=== PATIENT | male | born 1950 | race Caucasian/White ===

== ENCOUNTER → 2017-12-10 20:02 | Outpatient (CLI) | payer MEDICARE, OTHER, SELFPAY | PROVIDERS: Family Provider Internal Medicine; PCP Internal Medicine; Visit Provider Family Medicine | DX: G47.33 Obstructive sleep apnea (adult) (pediatric) (principal) | CPT/HCPCS: 95811 ==

== ENCOUNTER → 2018-06-10 12:52 | Outpatient (CLI) | payer MEDICARE, OTHER, SELFPAY ==
--- NOTE | 2018-06-10 13:11 | RAD_ITS ---
STUDY: X-RAY - LEFT KNEE REASON FOR EXAM: Male, 67 years old. Left knee pain, no known injury TECHNIQUE: 4 view(s) of the knee. COMPARISON: None. FINDINGS: Normal visualized distal femur. Normal visualized proximal tibia and fibula. Normal proximal tibiofibular articulation. Normal medial femorotibial compartment. Normal lateral femorotibial compartment. There is mild degenerative arthrosis of the patellofemoral articulation. There is no demonstrated joint effusion. The soft tissue structures are unremarkable. RAD/Knee 4 or More Views IMPRESSION: Minimal patellofemoral osteophytosis Electronically Signed: Danilo Bird DO at 12:02 EST Tel , Service support ,
== END ==
PROVIDERS: Family Provider Internal Medicine; PCP Family Medicine; Visit Provider Family Medicine
DX: M25.562 Pain in left knee (principal)
CPT/HCPCS: 73564

== ENCOUNTER → 2019-04-02 08:55 | Outpatient (CLI) | payer MEDICARE, OTHER, SELFPAY ==
[2019-04-02 12:29] LABS: Absolute Lymphocyte Count 1.19 X10^3/uL (0.83-4.51); Absolute Neutrophil Count 3.5 X10^3/uL (2.0-7.7); Basophil# 0.04 X10^3/uL; Basophil% 0.8 % (0-1); Eosinophil# 0.14 X10^3/uL; Eosinophils% 2.7 % (0-5); Hematocrit 39.1 % (40-54); Hemoglobin 12.5 g/dL (13.0-16.5); Lymphocyte # 1.19 X10^3/ul (4.0); Lymphocyte % 22.5 % (19-41); Mean Platelet Vol. 11.3 fl (6.2-12.0); Monocyte% 7.6 % (0-10); NRBC Flagged by Analyzer 0 % (0-5); Neutrophil % 66.2 % (47-70); Platelet Count 244 K/mm3 (150-450); RBC Distribution Width CV 13.6 % (11.6-14.6); RBC Distribution Width SD 46.6 fl (35.1-43.9); Red Blood Count 4.16 M/mm3 (4.6-6.2); White Blood Count 5.3 K/mm3 (4.4-11.0)
[2019-04-02 12:53] LABS: ALB/GLOB Ratio 1.1 RATIO (0.9-2.4); AST(SGOT) 24 U/L (15-37); Alanine Aminotransfer ALT/SGPT 26 U/L (16-61); Albumin, Serum 3.6 g/dL (3.2-5.0); Alkaline Phosphatase 80 U/L (45-117); Anion Gap 4 (5-15); BUN 20 mg/dL (7-18); BUN/Creat Ratio 19.6 RATIO (10-20); Calcium,Total 8.8 mg/dL (8.5-10.1); Chloride 109 mmol/L (98-107); Cholesterol 115 mg/dL (200); Creatinine, Serum 1.02 mg/dL (0.70-1.30); EST Glomerular Filtration Rate 77 mL/min (>60); Est Glom Filt Rate - Afr Amer 93 mL/min (>60); Globulin 3.3 g/dL (2.2-4.2); Glucose 83 mg/dL (74-106); High Density Lipoprotein 43 mg/dL; PSA,Total - Annual Screen 3.86 ng/mL (0.00-4.00); Protein, Total 6.9 g/dL (6.4-8.2); Sodium Level 141 mmol/L (136-145); Triglycerides 86 mg/dL; Very Low Density Lipoprotein 17 mg/dL (5-40)
== END ==
PROVIDERS: Family Provider Family Medicine; PCP Family Medicine; Visit Provider Family Medicine
DX: I25.10 Atherosclerotic heart disease of native coronary artery without angina pectoris (principal); E78.5 Hyperlipidemia, unspecified; Z12.5 Encounter for screening for malignant neoplasm of prostate; Z51.81 Encounter for therapeutic drug level monitoring
CPT/HCPCS: 36415; 80053; 80061; 84153; 85025; G0103

== ENCOUNTER → 2019-08-10 14:21 | Outpatient (CLI) | payer MEDICARE, OTHER, SELFPAY | PROVIDERS: PCP Family Medicine; Referring Provider Family Medicine; Visit Provider Family Medicine | DX: Z28.3 Underimmunization status (principal) | CPT/HCPCS: 36415; 86787 ==

== ENCOUNTER 2022-06-23 21:55 | Inpatient (IN) | payer MEDICARE, OTHER, SELFPAY ==
[2022-06-23 21:56] VITALS: BP 118/69; PULSE 63; TEMP 36.3; O2SAT 97; BMI 24.3
--- NOTE | 2022-06-23 22:10 | EKG12_ITS ---
Test Reason : CP Blood Pressure : / mmHG Vent. Rate : 063 BPM Atrial Rate : 063 BPM P-R Int : 172 ms QRS Dur : 088 ms QT Int : 410 ms P-R-T Axes : 039 059 015 degrees QTc Int : 419 ms Normal sinus rhythm Normal ECG Confirmed by TERE PRADO, MAX ([id number]), assistant production editor MEMO BAILEY ([id number]) on 06/24/2022 10:57:57 AM Referred By: Confirmed By:MAX CARRANZA MD
--- NOTE | 2022-06-23 22:11 | ED.VIS.CHEST ---
HPI History of Present Illness Chief Complaint: Chest Pain Informant: patient and EMS Narrative Narrative: Presents by EMS for onset of sharp chest pains with dyspnea while shoveling snow. He was doing heavy snow for 2 hours and symptoms started. He states he is short of breath as he is attributed to shoveling snow. He was not diaphoretic there is no radicular symptoms. Hypertension and hyperlipidemia remote tobacco. He states he had an NSTEMI 4 years ago with stent to the left circumflex placed [facility]. He is followed by cardiology Dr. Merino. He took 2 nitros with no relief EMS gave additional 4 aspirin. However his pain subsiding down to a 3. Denies cough. He reports with his heart catheter or other lesions that were 50 to 60% blocked with no intervention. He has not had a cath since. No stress test since. States at that time with his NSTEMI he had pain that was more significant combination of pressure and sharpness. He states he was diaphoretic then. CVD Risk Factors: Positive for Hypertension and Hypercholesterolemia PFSH REPLACED BY [facility] Medical History (Updated 06/24/22 @ 03:[address] Oren Garrett DO) Myocardial infarct Home Medications Nitroglycerin 0.4 mg sublingual PRN Cardiac/Chest Pain 12/26/16 [History Last Taken Unknown] aspirin 81 mg chewable tablet 81 mg PO DAILY@0800 12/26/16 [History Last Taken Unknown] atorvastatin 80 mg tablet 80 mg QHS 12/26/16 [History Last Taken Unknown] metoprolol tartrate 25 mg tablet 12.5 mg PO BID 12/26/16 [History Last Taken Unknown] Allergy/AdvReac Type Severity Reaction Status Date / Time No Known Allergies Allergy Verified 06/23/22 22:01 Family History Other Diabetes Heart disease Surgical History History of coronary artery stent placement Hx of skin graft Social History (Updated 06/24/22 @ 00:40 by Basia Gunn) housing: house Smoking Status: Former smoker ROS ROS ED Constitutional Constitutional ED: Denies chills, fever(s) or sweats Eyes Eyes: Denies change in vision ENT ENT ED: Denies dysphagia or sore throat Cardiovascular Cardiovascular: Reports chest pain; Denies leg edema, palpitations or racing heartbeat Respiratory/Chest Respiratory/Chest: Reports dyspnea; Denies cough or dyspnea on exertion Gastrointestinal Gastrointestinal: Denies abdominal pain, diarrhea, nausea or vomiting Genitourinary Genitourinary ED: Denies dysuria, hematuria or urinary frequency Musculoskeletal Musculoskeletal: Denies back pain, extremity pain or neck pain Integumentary Denies rash or wounds Neurologic Neurologic: Denies headache(s), paresthesias or weakness EXAM Physical Exam Const Vital Signs: 06/23/22 21:56 06/23/22 22:10 Temperature 97.4 F L Temperature Source Temporal Pulse Rate 63 Blood Pressure 118/69 Blood Pressure Mean 85 Pulse Ox 97 Oxygen Delivery Method Room Air Room Air Positive well nourished and well developed General Appearance ED: well developed and NAD HEENT Reports moist mucous membranes normocephalic and atraumatic Eyes PERRL, EOMs intact bilaterally and conjunctivae normal General Eye ED: Yes normal appearance of both eyes Neck no lymphadenopathy and supple General: Negative for tenderness Chest Wall Chest: Negative for tenderness Resp normal respiratory effort and normal air movement Effort and Inspection: symmetric chest movement; Negative for respiratory distress Cardio regular rate, regular rhythm and no murmurs Peripheral Pulses: pulses 2+ throughout GI normal to inspection, nondistended, normoactive bowel sounds and non-tender Palpation: Negative for guarding or rebound tenderness present Back/Spine no CVA tenderness and no thoracic nor lumbar tenderness Extremity normal to inspection General Extremety ED: Negative for edema or tenderness General Extremity: Negative for edema Neuro oriented x3 and no sensory deficits noted Sensorium / Orientation: awake and alert Skin no rashes or lesions noted and no wounds Heart Score History: Moderately Suspicious ECG: Normal Age: >/= 65 years Risk Factors: >/= 3 Risk Factors or History of CAD Troponin: </= Normal Limit Score: 5 MDM MDM MDM Narrative Medical decision making narrative: Patient presents with exertional chest pain severe sharp in nature with dyspnea. History of coronary disease. EKG isolated T wave version leads III nonspecific this time. Differential is ACS with atypical chest pain versus musculoskeletal. No PE risk factors. Cardiac work-up initiated. 5: 2 view chest x-ray read by myself and read by me shows no acute process. Troponin negative. Reevaluation and pain is more mild however still there he declines any additional medications with his cardiac risk factors and known coronary disease up to 60% blocked 4 years ago I spoke with covering manager drive Dr. Jain, with no EKG changes he recommends trending troponin and if negative for stress test in the hospital. I spoke with hospitalist Dr Aguayo for admission to PCU.. Lab Data Attestation: I reviewed the patient's lab results. Labs: Laboratory Results - last 24 hr 06/23/22 06/23/22 06/23/22 22:00 22:00 22:00 WBC 12.2 H RBC 4.01 L Hgb 12.4 L Hct 37.3 L MCV 93.0 MCH 30.9 MCHC 33.2 RDW Std Deviation 47.4 H RDW Coeff of David 13.9 Plt Count 231 MPV 11.2 Immature Gran % (Auto) 0.300 Neut % (Auto) 85.9 H Lymph % (Auto) 9.0 L [place] % (Auto) 4.0 Eos % (Auto) 0.4 Baso % (Auto) 0.4 Absolute Neuts (auto) 10.5 H Absolute Lymphs (auto) 1.09 Nucleated RBC % 0 PT 13.8 INR 1.1 APTT 26.6 Sodium 141 Potassium 4.2 Chloride 109 H Carbon Dioxide 26.0 Anion Gap 6 BUN 29 H Creatinine 0.97 Estim Creat Clear Calc 75.56 Est GFR (MDRD) Af Amer 98 Est GFR (MDRD) Non-Af 81 BUN/Creatinine Ratio 29.9 H Glucose 97 Calcium 8.8 Troponin I High Sens 6 Radiography Diagnostic Testing: Clinical Impression(s) from Imaging Studies Chest X-Ray 06/23/22 22:15 IMPRESSION: No radiographic evidence of acute cardiopulmonary disease. Electronically Signed: Tom Motta MD at 22:27 EST , EKG Initial EKG: Attestation: I personally reviewed and interpreted this EKG as follows: Comments: Sinus rate of 63, no ST changes isolated T wave version leads III, nonspecific. Discharge Plan Dx/Rx/DC Orders Clinical Impression: Chest pain, HTN (hypertension), History of CAD (coronary artery disease) Disposition Disposition: Acute Care Hospital [facility] Discharge Date/Time: 06/24/22 00:42
--- NOTE | 2022-06-23 22:15 | RAD_ITS ---
EXAM: XR CHEST, 2 VIEWS CLINICAL INDICATION: chest pain TECHNIQUE: Frontal and lateral views of the chest. This report was created using [employer] report generation technology. COMPARISON: None. FINDINGS: LUNGS AND PLEURAL SPACES: Unremarkable. No consolidation or edema. No pneumothorax. No effusion. HEART: Unremarkable. Cardiac silhouette not enlarged. MEDIASTINUM: Central airways and mediastinal contour are unremarkable. BONES/JOINTS: Unremarkable. SOFT TISSUES: Unremarkable. RAD/Chest PA and Lateral IMPRESSION: No radiographic evidence of acute cardiopulmonary disease. Electronically Signed: Tom Motta MD at 22:27 [facility] ,
[2022-06-23 22:34] LABS: Absolute Lymphocyte Count 1.09 X10^3/uL (0.83-4.51); Absolute Neutrophil Count 10.5 X10^3/uL (2.0-7.7); Basophil# 0.05 X10^3/uL; Basophil% 0.4 % (0-1); Eosinophil# 0.05 X10^3/uL; Eosinophils% 0.4 % (0-5); Hematocrit 37.3 % (40-54); Hemoglobin 12.4 g/dL (13.0-16.5); Lymphocyte # 1.09 X10^3/ul (0.83-4.51); Mean Corp Hgb Conc 33.2 g/dL (32-36); Mean Corpuscular Hgb 30.9 pg (27.0-32.0); Mean Platelet Vol. 11.2 fl (6.2-12.0); Monocyte# 0.49 X10^3/uL; NRBC Flagged by Analyzer 0 % (0-5); Neutrophil # 10.45 X10^3/uL (2.7-7.7); Neutrophil % 85.9 % (47-70); Platelet Count 231 K/mm3 (150-450); RBC Distribution Width CV 13.9 % (11.6-14.6); RBC Distribution Width SD 47.4 fl (35.1-43.9); Red Blood Count 4.01 M/mm3 (4.6-6.2); White Blood Count 12.2 K/mm3 (4.4-11.0)
[2022-06-23 22:43] LABS: International Normalized Ratio 1.1; Prothrombin Time (Protime)PT. 13.8 SECONDS (11.7-14.9)
[2022-06-23 22:44] LABS: Partial Thromboplast Time 26.6 Seconds (24.1-36.2)
[2022-06-23 23:08] LABS: Anion Gap 6 (5-15); BUN 29 mg/dL (7-18); BUN/Creat Ratio 29.9 RATIO (10-20); Calcium,Total 8.8 mg/dL (8.5-10.1); Chloride 109 mmol/L (98-107); Creatinine, Serum 0.97 mg/dL (0.70-1.30); EST Glomerular Filtration Rate 81 mL/min (>60); Est Glom Filt Rate - Afr Amer 98 mL/min (>60); Estimated Creatinine Clearance 75.56 ml/min; Glucose 97 mg/dL (74-106); Potassium 4.2 mmol/L (3.5-5.1); Sodium Level 141 mmol/L (136-145); Troponin-I HS (w/2H Reflex) 6 pg/mL (3.0-78.0)
--- NOTE | 2022-06-23 23:54 | HP.PCM.HOS_ITS ---
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 His chest pain was at his left chest and it went through to his left scapula. His chest pain came on suddenly after shoveling snow. He took 2 nitroglycerin that did not help his pain. Paramedics gave him 4 baby aspirin that eased his pain somewhat but his pain returned. He denies any nausea or vomiting. He had diaphoresis and shortness of breath that he thinks was associated with shoveling. Aside from the shoveling patient denies any aggravating factors to the chest pain. At the time of hospital evaluation patient's pain was about a 1 on a scale of 1- 10. Patient has had some ongoing fatigue with exertion. In regard to his NSTEMI he report that 4 years ago he had chest pain and went to [facility]. At that time his troponin was not elevated. However patient was transferred to [facility] where his troponin esequiel and he ended up being cath. A stent was placed in his circumflex. However there were a 'couple' of vessels which was stenosed to 50 to 60%. [facility] Medical History Myocardial infarct Home Medications Nitroglycerin 0.4 mg sublingual PRN Cardiac/Chest Pain 12/26/16 [History Last Taken Unknown] aspirin 81 mg chewable tablet 81 mg PO DAILY@0800 12/26/16 [History Last Taken Unknown] atorvastatin 80 mg tablet 80 mg QHS 12/26/16 [History Last Taken Unknown] metoprolol tartrate 25 mg tablet 12.5 mg PO BID 12/26/16 [History Last Taken Unknown] Allergy/AdvReac Type Severity Reaction Status Date / Time No Known Allergies Allergy Verified 06/23/22 22:01 Family History Other Diabetes Heart disease Surgical History (Updated 06/24/22 @ 00:[address] Junior Aguayo MD) History of coronary artery stent placement Hx of skin graft Social History Smoking Status: Former smoker ROS ROS Narrative Pertinent positives and pertinent negatives as noted in HPI. All other systems were reviewed and are negative Vital Signs Vital Signs Vital Signs: 06/23/22 21:56 06/23/22 22:10 Temperature 97.4 F L Temperature Source Temporal Pulse Rate 63 Blood Pressure 118/69 Blood Pressure Mean 85 Pulse Ox 97 Oxygen Delivery Method Room Air Room Air Weight Weight: 81.4 kg Body Mass Index (BMI) 24.3 Physical Exam Narrative Physical exam: General: Well-nourished, well-developed. Head: Normocephalic, atraumatic, no tenderness Eyes: Vision is grossly intact. EOMI ENT, no trauma, moist mucous membranes, no rhinorrhea Neck: Nontender, No thyromegaly. CVS: Regular rate and rhythm. S1-S2 present. No murmur, gallop or rub. Respiratory : clear to auscultation bilaterally, chest wall nontender, no wheezing Abdomen: Soft, nontender, nondistended, normal bowel sounds, no masses : Deferred Back: Nontender, no CVA tenderness, no midline spinal tenderness, deformities, step-offs Extremities: Nontender full range of motion, no trauma Skin: Normal color, no trauma, abrasions Neuro: Alert, oriented, cranial nerves II through XII grossly intact. Psychiatry: Normal mood. Normal affect. Not depressed. Not anxious. Results Lab / Micro Data Result Diagrams: 06/23/22 22:00 06/23/22 22:00 Labs: Laboratory Results - last 24 hr 06/23/22 22:00: WBC 12.2 H, RBC 4.01 L, Hgb 12.4 L, Hct 37.3 L, MCV 93.0, MCH 30.9, MCHC 33.2, RDW Std Deviation 47.4 H, RDW Coeff of David 13.9, Plt Count 231, MPV 11.2, Immature Gran % (Auto) 0.300, Neut % (Auto) 85.9 H, Lymph % (Auto) 9.0 L, [place] % (Auto) 4.0, Eos % (Auto) 0.4, Baso % (Auto) 0.4, Absolute Neuts (auto) 10.5 H, Absolute Lymphs (auto) 1.09, Nucleated RBC % 0 06/23/22 22:00: PT 13.8, INR 1.1, APTT 26.6 06/23/22 22:00: Sodium 141, Potassium 4.2, Chloride 109 H, Carbon Dioxide 26.0, Anion Gap 6, BUN 29 H, Creatinine 0.97, Estim Creat Clear Calc 75.56, Est GFR (MDRD) Af Amer 98, Est GFR (MDRD) Non-Af 81, BUN/Creatinine Ratio 29.9 H, Glucose 97, Calcium 8.8, Troponin I High Sens 6 Radiology Impression Chest X-Ray 06/23/22 22:15 IMPRESSION: No radiographic evidence of acute cardiopulmonary disease. Electronically Signed: Tom Motta MD at 22:27 EST , Assessment & Plan Assessment/Plan (1) Chest pain: (2) HTN (hypertension): PLAN: Plan Chest pain Place on a monitored bed at progressive care unit Radiologist impression of chest x-ray: No radiographic evidence of acute ca rdiopulmonary disease. Actual CXR image was independently visualized. No acute cardiopulmonary process was noted. Actual EKG tracing was independently visualized. EKG tracing showed T wave inversions in lead III. No previous EKG to compare with ASA 81 mg p.o. daily and high intensity statin of atorvastatin 80 mg nightly continued. Morphine as needed for pain ordered We will check lipid panel. Initial high sensitive troponin was 6. Emergency department doctor discussed with on-call cardiology because of patient risk. Per recommendation from on- call program support specialist relayed to ED will trend troponin. If troponin is negative we will get a stress test. Treadmill stress test ordered. If troponin is significant elevated will consult cardiology. Leukocytosis CBC showed white count of 12,200. There is no bandemia. Likely reactive. Trend. Chronic anemia Stable Hypertension Stable Home metoprolol continued. Hold for a.m. stress test. Trend blood pressures DVT prophylaxis; SCD ordered. Charges/Coding Visit Charges Inpatient E&M: 44651 Init Hosp L2
[2022-06-24] VITALS (16 sets, daily range): BP systolic 106–134; BP diastolic 66–84; PULSE 57–69; RESP 14–18; TEMP 36.3–36.7; O2SAT 94–100; BMI 23.9
[2022-06-24 00:19] LABS: Reflex Troponin-HS? (from REC) Y
--- NOTE | 2022-06-24 00:49 | EKG12_ITS ---
Test Reason : CP ADMIT Blood Pressure : / mmHG Vent. Rate : 063 BPM Atrial Rate : 063 BPM P-R Int : 186 ms QRS Dur : 090 ms QT Int : 426 ms P-R-T Axes : 070 060 026 degrees QTc Int : 435 ms Normal sinus rhythm Normal ECG When compared with ECG of 23-JUN-2022 21:55, MANUAL COMPARISON REQUIRED, DATA IS UNCONFIRMED Confirmed by TERE PRADO, MAX ([id number]), editor farm journal MEMO BAILEY ([id number]) on 06/25/2022 11:31:56 AM Referred By: DR STEWART Confirmed By:MAX CARRANZA MD
[2022-06-24 02:14] LABS: Troponin-I HS 46 pg/mL (3.0-78.0)
[2022-06-24 04:08] LABS: Absolute Lymphocyte Count 1.49 X10^3/uL (0.83-4.51); Absolute Neutrophil Count 7.3 X10^3/uL (2.0-7.7); Basophil# 0.04 X10^3/uL; Basophil% 0.4 % (0-1); Eosinophil# 0.02 X10^3/uL; Eosinophils% 0.2 % (0-5); Hematocrit 36.5 % (40-54); Lymphocyte # 1.49 X10^3/ul (0.83-4.51); Mean Corp Hgb Conc 32.9 g/dL (32-36); Mean Corpuscular Hgb 30.5 pg (27.0-32.0); Mean Corpuscular Volume 92.6 fL (80-94); Mean Platelet Vol. 11.1 fl (6.2-12.0); Monocyte# 0.42 X10^3/uL; Monocyte% 4.5 % (0-10); NRBC Flagged by Analyzer 0 % (0-5); Neutrophil # 7.31 X10^3/uL (2.7-7.7); Neutrophil % 78.6 % (47-70); Platelet Count 221 K/mm3 (150-450); RBC Distribution Width CV 13.9 % (11.6-14.6); RBC Distribution Width SD 47.4 fl (35.1-43.9); Red Blood Count 3.94 M/mm3 (4.6-6.2); White Blood Count 9.3 K/mm3 (4.4-11.0)
[2022-06-24] MEDS: Aspirin 81 MG TAB.CHEW PO (05:44)
--- NOTE | 2022-06-24 05:55 | ECHOD_ITS ---
Reason For Study: Fatigue with exertion Procedure This was a 2D Doppler, Color Flow transthoracic echocardiogram. Exam performed portable in patient room. Left Ventricle Normal LV size. Left ventricular systolic function is normal. The estimated ejection fraction is 60 %. Normal diastology for age. No regional wall motion abnormalities noted. Right Ventricle Normal RV size. Normal systolic function. Atria Normal left atrium. Normal right atrium. Mitral Valve Normal mitral valve. Tricuspid Valve Normal tricuspid valve. Mild tricuspid valve insufficiency. Pulmonary artery systolic pressure is 30 mmHg. Aortic Valve Normal aortic valve. Trisinus/trileaflet aortic valve. Pulmonic Valve Normal pulmonic valve. Great Vessels Normal aortic root. The pulmonary artery is normal size. Normal inferior vena cava. Pericardium/Pleural No pericardial effusion. MMode/2D Measurements & Calculations LVIDd: 5.3 cm IVSd: 1.1 cm Ao root diam: 3.7 cm LVIDs: 3.0 cm LVPWd: 0.78 cm RVDd: 3.5 cm FS: 42.2 % LAV(MOD-bp): 39.8 ml LVAd ap4: 29.1 cm2 LVAd ap2: 26.1 cm2 LAV(MOD-bp) Indexed: 19.7 ml/m2 LVLd ap4: 7.7 cm LVLd ap2: 7.5 cm LAV(MOD-sp2): 54.5 ml EDV(MOD-sp4): 93.0 ml EDV(MOD-sp2): 79.1 ml LAV(MOD-sp4): 27.7 ml EDV(sp4-el): 93.1 ml EDV(sp2-el): 77.3 ml LVAs ap4: 15.4 cm2 LVAs ap2: 13.2 cm2 LVLs ap4: 6.3 cm LVLs ap2: 6.2 cm ESV(MOD-sp4): 33.2 ml ESV(MOD-sp2): 26.2 ml ESV(sp4-el): 32.2 ml ESV(sp2-el): 24.1 ml EF(MOD-sp4): 64.3 % EF(MOD-sp2): 66.8 % EF(sp4-el): 65.4 % SV(MOD-sp4): 59.8 ml SV(MOD-sp2): 52.8 ml SV(sp4-el): 60.9 ml LA dimension(2D): 3.6 cm LA A4 area: 13.6 cm2 RA A4 area: 18.1 cm2 Time Measurements MV dec time: 0.20 sec Doppler Measurements & Calculations MV E max mikael: 77.2 cm/sec Lat Peak E' Mikael: 12.3 cm/sec Med Peak E' Mikael: 8.2 cm/sec MV A max mikael: 56.7 cm/sec E/E' lat: 6.3 E/E' med: 9.5 MV E/A: 1.4 MV dec slope: 382.4 cm/sec2 Ao V2 max: 136.4 cm/sec LV V1 max: 106.9 cm/sec Ao max P.5 mmHg LV V1 max P.6 mmHg Ao V2 mean: 88.0 cm/sec Ao mean P.6 mmHg Ao V2 VTI: 32.3 cm PA V2 max: 100.8 cm/sec TR max mikael: 258.2 cm/sec TR max P.7 mmHg ECHO/Echo Complete Interpretation Summary Normal LV size. Left ventricular systolic function is normal. The estimated ejection fraction is 60 %. Pulmonary artery systolic pressure is 30 mmHg. Ordering Physician: Junior Aguayo Referring Physician: Gallito Covarrubias Performed By: Natalie Echevarria, GISELA, RVT
[2022-06-24 07:57] LABS: Cholesterol 109 mg/dL (200); High Density Lipoprotein 49 mg/dL; Triglycerides 34 mg/dL; Very Low Density Lipoprotein 7 mg/dL (5-40)
[2022-06-24 08:17] LABS: Troponin-I HS 301 pg/mL (3.0-78.0)
--- NOTE | 2022-06-24 08:59 | PCM.CONS.C ---
Assessment & Plan Assessment/Plan (1) NSTEMI (non-ST elevated myocardial infarction): PLAN: He presents with a non-ST elevation myocardial infarction. My recommendation will be to proceed with a left heart catheterization and depending on the findings further recommendations made. Cardiac catheterization today demonstrated the following: Normal left main coronary artery. Left anterior descending artery with mild disease. Left circumflex artery previously stented with patent stents. Dominant right coronary artery with posterior lateral vessel with proximal 70 to 80% stenosis. Based on the above angiographic findings would consider PCI to this vessel. (2) HTN (hypertension): PLAN: Patient will continue with aggressive risk factor modification. HPI Consult Data Date of Consult: 06/24/22 HPI Narrative HPI Narrative: SMITA GAVIRIA, is a 71 M who presents to the emergency room with chest discomfort who says that it was sharp started an hour before presentation and radiated to his left scapula. He when shoveling snow and then this happened. He took nitroglycerin which did not help and then he called the paramedics. They gave him 4 baby aspirin. In the emergency room he had minimal chest discomfort and was also noted to have an EKG which did not demonstrate any acute changes. His history is significant for non-ST elevation myocardial infarction 4 years ago when he presented and went to [facility] and was transferred to [facility] where he underwent stent placement in the circumflex vessel. The other vessels were noted to be 50 to 60% stenosis. Medical therapy was recommended. At this particular time he is doing well he was scheduled to have a stress test but with his abnormal cardiac enzymes cardiology was called for further evaluation and management. [facility] Medical History Myocardial infarct Home Medications Nitroglycerin 0.4 mg sublingual PRN Cardiac/Chest Pain 12/26/16 [History Last Taken Unknown] aspirin 81 mg chewable tablet 81 mg PO DAILY@0800 12/26/16 [History Last Taken Unknown] atorvastatin 80 mg tablet 80 mg QHS 12/26/16 [History Last Taken Unknown] metoprolol tartrate 25 mg tablet 12.5 mg PO BID 12/26/16 [History Last Taken Unknown] Allergy/AdvReac Type Severity Reaction Status Date / Time No Known Allergies Allergy Verified 06/23/22 22:01 Family History Other Diabetes Heart disease Surgical History History of coronary artery stent placement Hx of skin graft Social History housing: house Smoking Status: Former smoker ROS Constitutional Constitutional: Denies fever(s) or weight loss Eyes Eyes: Reports systems reviewed and no addt'l complaints, except as documented ENT HEENT: Reports systems reviewed and no addt'l complaints, except as documented Cardiovascular Cardiovascular: Reports chest pain with activity; Denies dyspnea at rest, dyspnea on exertion, edema, palpitations or paroxysmal nocturnal dyspnea Respiratory/Chest Respiratory/Chest: Denies dyspnea on exertion, productive cough, shortness of breath at rest or shortness of breath with exertion Gastrointestinal Gastrointestinal: Denies change in bowel habits, nausea, vomiting or weight changes Genitourinary Genitourinary: Denies difficulty urinating Musculoskeletal Musculoskeletal: Denies joint stiffness or muscle weakness Integumentary Integumentary: Denies lesions Neurologic Neurologic: Denies dizziness or syncope Psychiatric Psychiatric: Denies anxiety Endocrine Endocrinology: Denies excessive sweating or fatigue Hematologic/Lymphatic Hematologic/Lymphatic: Denies anemia Allergic/Immunologic Allergic/Immunologic: Denies seasonal rhinorrhea Physical Exam Const alert, oriented x3 and no apparent distress General Appearance: cooperative HEENT hearing grossly normal bilaterally Head and Scalp: atraumatic Eyes EOMs intact bilaterally Neck General: normal visual inspection Chest inspection of chest normal and palpation of chest normal Resp normal respiratory effort Auscultation: clear to auscultation bilaterally Cardio regular rate, regular rhythm, S1 normal heart sound and S2 normal heart sound Jugular Venous Distention: JVD GI normal to inspection, nondistended, normoactive bowel sounds Extremity normal capillary refill and no pedal edema Peripheral Pulses: Yes pulses 2+ throughout and femoral pulses present Skin no rashes or lesions noted Neuro oriented x3 and CN's II-XII intact bilaterally Psych Appearance: grossly normal and appropriate Risk Stratification Risk Stratification Applicable: Yes Age >/= 65: Yes >/= 3 CAD Risk Factors (HTN, HLD, DM, family hx of CAD, or current smoker): Yes Aspirin Use in the Past 7 Days: No Severe Angina (>/= episodes in 24 hours): No EKG ST Changes >/= 0.5mm: No Positive Cardiac Marker: Yes PRABHJOT Risk Stratification Score: 3 PRABHJOT % Risk: 13% Risk Objective Data Vital Signs: Vital Signs Temp Pulse Resp BP Pulse Ox O2 Del Method 97.4 F L 60 16 106/66 96 Room Air 06/24/22 05:41 06/24/22 05:41 06/24/22 05:41 06/24/22 05:41 06/24/22 05:41 06/24/22 07:40 Oxygen Delivery Method Room Air Weight: 176 lb 9.444 oz Body Mass Index (BMI) 23.9 Lab / Micro Data Result Diagrams: 06/24/22 03:51 06/23/22 22:00 Labs: Laboratory Results - last 24 hr 06/23/22 22:00: WBC 12.2 H, RBC 4.01 L, Hgb 12.4 L, Hct 37.3 L, MCV 93.0, MCH 30.9, MCHC 33.2, RDW Std Deviation 47.4 H, RDW Coeff of David 13.9, Plt Count 231, MPV 11.2, Immature Gran % (Auto) 0.300, Neut % (Auto) 85.9 H, Lymph % (Auto) 9.0 L, Dixie % (Auto) 4.0, Eos % (Auto) 0.4, Baso % (Auto) 0.4, Absolute Neuts (auto) 10.5 H, Absolute Lymphs (auto) 1.09, Nucleated RBC % 0 06/23/22 22:00: PT 13.8, INR 1.1, APTT 26.6 06/23/22 22:00: Sodium 141, Potassium 4.2, Chloride 109 H, Carbon Dioxide 26.0, Anion Gap 6, BUN 29 H, Creatinine 0.97, Estim Creat Clear Calc 75.56, Est GFR (MDRD) Af Amer 98, Est GFR (MDRD) Non-Af 81, BUN/Creatinine Ratio 29.9 H, Glucose 97, Calcium 8.8, Troponin I High Sens 6 06/24/22 00:30: Troponin I High Sens 46 06/24/22 03:51: Triglycerides 34, Cholesterol 109, LDL Cholesterol 53, VLDL Cholesterol 7, HDL Cholesterol 49 06/24/22 03:51: WBC 9.3, RBC 3.94 L, Hgb 12.0 L, Hct 36.5 L, MCV 92.6, MCH 30.5, MCHC 32.9, RDW Std Deviation 47.4 H, RDW Coeff of David 13.9, Plt Count 221, MPV 11.1, Immature Gran % (Auto) 0.300, Neut % (Auto) 78.6 H, Lymph % (Auto) 16.0 L, Dixie % (Auto) 4.5, Eos % (Auto) 0.2, Baso % (Auto) 0.4, Absolute Neuts (auto) 7.3, Absolute Lymphs (auto) 1.49, Nucleated RBC % 0 06/24/22 03:51: Troponin I High Sens 301 H* Cardiology Labs/Tests 06/23/22 22:00: WBC 12.2 H, RBC 4.01 L, Hgb 12.4 L, Hct 37.3 L, MCV 93.0, MCH 30.9, MCHC 33.2, Plt Count 231, MPV 11.2, Immature Gran % (Auto) 0.300, Neut % (Auto) 85.9 H, Lymph % (Auto) 9.0 L, Dixie % (Auto) 4.0, Eos % (Auto) 0.4, Baso % (Auto) 0.4, Absolute Neuts (auto) 10.5 H, Nucleated RBC % 0 06/23/22 22:00: PT 13.8, INR 1.1, APTT 26.6 06/23/22 22:00: Sodium 141, Potassium 4.2, Chloride 109 H, Carbon Dioxide 26.0, Anion Gap 6, BUN 29 H, Creatinine 0.97, Est GFR (MDRD) Af Amer 98, Est GFR (MDRD) Non-Af 81, BUN/Creatinine Ratio 29.9 H, Glucose 97, Calcium 8.8 06/24/22 03:51: Triglycerides 34, Cholesterol 109, LDL Cholesterol 53, VLDL Cholesterol 7, HDL Cholesterol 49 06/24/22 03:51: WBC 9.3, RBC 3.94 L, Hgb 12.0 L, Hct 36.5 L, MCV 92.6, MCH 30.5, MCHC 32.9, Plt Count 221, MPV 11.1, Immature Gran % (Auto) 0.300, Neut % (Auto) 78.6 H, Lymph % (Auto) 16.0 L, Dixie % (Auto) 4.5, Eos % (Auto) 0.2, Baso % (Auto) 0.4, Absolute Neuts (auto) 7.3, Nucleated RBC % 0 Rhythm: EKG: ECHO: Stress Test: Cardiac Cath: PCI: CT Surgery: Holter monitor: EPS: PPM: CXR: Chest CT Scan: Radiography Diagnostic Testing: Radiology Impression Chest X-Ray 06/23/22 22:15 IMPRESSION: No radiographic evidence of acute cardiopulmonary disease. Electronically Signed: Tom Motta MD at 22:27 EST ,
[2022-06-24] MEDS: 0.9% Normal Saline 1,000 ML 15 ML IV (09:07)
[2022-06-24] MEDS: Metoprolol Tartrate 25 MG Tablet 12.5 MG PO ×2 (09:08→21:43)
--- NOTE | 2022-06-24 10:11 | CL.D_ITS ---
Patient Name: SMITA GAVIRIA Study Date: 06/24/2022 Performing: Titus Jain MD Ht: 72 inches 182.88 cm : 1950 Wt: 176.59 lbs 80.1 kg Age: 71 Gender: male BSA: 2.02 PROCEDURE(S) PERFORMED DC01-(08502)LHC/COR/LV IC12-(69969/C9600)BERNARDO W/WO PTCA, SINGLE CORONARY ARTERY CLINICAL PROFILE AND INDICATIONS Indications: Suspected CAD Heart Failure: None Stress/Imaging Stress/Image Study Performed: No CAD Presentations: Non-STEMI. Symptom onset Date/Time: 06/23/22 Time Not Available CONCLUSIONS Moderately severe disease noted of the proximal posterolateral vessel on the right coronary artery with previously placed stent in the circumflex artery noted to be patent and preserved ejection fraction. RECOMMENDATIONS Referred for immediate PCI DESCRIPTION OF PROCEDURE The patient arrived to the procedure lab. The risks and benefits of the procedure as well as a full description of our services here and current unavailability of surgical backup were fully explained to the patient and/or their significant other prior to the catheterization. The Timeout was completed, verifying the correct patient and procedure. The patient's procedural site was prepped and draped in the usual fashion. Local anesthetic was given subcutaneously to right radial region with Lidocaine 2%. Using a modified Seldinger technique, arterial access was obtained via the right radial artery, a 6Fr sheath was inserted. Left Coronary Artery selective angiography was performed in multiple views using a 5 Fr. 4.0 Calvin catheter. Right Coronary Artery selective angiography was then performed in multiple views using a 5 Fr. 4.0 Calvin catheter. Left Ventriculography was performed in WELSH projection using a 5 Fr. Pigtail catheter. LV to AO pullback pressures were then recorded. CORONARY ANGIOGRAPHY DOMINANCE: Right Dominant LEFT HEART ASSESSMENT Normal Left Ventricular systolic function LEFT MAIN: Angiographically normal LEFT ANTERIOR DESCENDING ARTERY: Mild luminal irregularities less than 30% CIRCUMFLEX ARTERY: Previously placed stent is patent RIGHT CORONARY ARTERY: Mild luminal irregularities RT PLV: 70 proximal % Stenosis COMPLICATIONS PROCEDURE MEDICATIONS Fentanyl 50 mcg IV Versed 1 mg IV Oxygen: 2 L/min via nasal cannula Brilinta 180 mg PO @ 06/24/2022 09:59:28 Heparin given IA 06/24/2022 09:48:37 Verapamil 2.5mg, Ntg 100mcgs, 3000 units of Heparin given IA 06/24/2022 09:48:37 SUMMARY OF HEMODYNAMIC DATA Time AIR REST AO 109/69 (89) SA 09:49:31 LV 108/9, 20 09:56:39 LV 96/11, 21 09:56:47 LV 96/11, 14 09:57:44 LVp 95/9, 16 09:57:49 AOp 128/68 (94) 09:57:56 AO 100/49 (73) 10:18:20 ECG 10:57:40 10:57:40 Signed By Titus Jain MD On 06/24/2022 10:58:45 Signed By Titus Jain MD On 06/24/2022 10:10:41 Titus Jain MD
--- NOTE | 2022-06-24 11:04 | CL.I_ITS ---
Patient Name: SMITA GAVIRIA Study Date: 06/24/2022 Performing: Luciano Christopher MD Ht: 72 inches 182.88 cm : 1950 Wt: 176.59 lbs 80.1 kg Age: 71 Gender: male BSA: 2.02 PROCEDURE(S) PERFORMED IC12-(24640/C9600)BERNARDO W/WO PTCA, SINGLE CORONARY ARTERY CLINICAL PROFILE AND CO-MORBIDITIES Indications: Suspected CAD Heart Failure: None Stress/Imaging Stress/Image Study Performed: No CAD Presentations: Non-STEMI. Symptom onset Date/Time: 06/23/22 Time Not Available CONCLUSIONS Successful BERNARDO Prox RPLV using Resolute Nahum 2.5x8 mm (post-dilated using 3.0 mm balloon) and 3.0x12 mm RECOMMENDATIONS ASA Ayadefedwin Velez for at least 12 months DESCRIPTION OF PROCEDURE The patient arrived to the procedure lab. The risks and benefits of the procedure as well as a full description of our services here and current unavailability of surgical backup were fully explained to the patient and/or their significant other prior to the catheterization. The Timeout was completed, verifying the correct patient and procedure. The patient's procedural site was prepped and draped in the usual fashion. Local anesthetic was given subcutaneously to right radial region with Lidocaine 2% Using a modified Seldinger technique,arterial access was obtained via the right radial artery, a 6Fr sheath was inserted. Left Coronary Artery selective angiography was performed in multiple views using a 5 Fr. 4.0 [place] catheter. Right Coronary Artery selective angiography was then performed in multiple views using a 5 Fr. 4.0 [place] catheter. Left Ventriculography was performed in WELSH projection using a 5 Fr. Pigtail catheter. LV to AO pullback pressures were then recorded.The images were reviewed and options discussed. A decision was then made to proceed with an Intervention, IVUS or other adjunct procedure. AL 0.75 Guide catheter was inserted and engaged into the RCA. Runthrough Guide wire was advanced to the RPL. 2.5 x 8 Nahum Drug Eluting stent was inserted. Drug Eluting stent was advanced across the lesion in the RPL proximal Angiogram performed pre stent deployment. Angiogram performed post stent deployment. 3.0 x 8 NC Euphora Balloon catheter was inserted post stent. Angiogram performed post balloon dilatation. Runthrough Guide wire was advanced to the RCA. 3.0 x 12 [place] Drug Eluting stent was advanced across the lesion in the RPL proximal Angiogram performed pre stent deployment. Angiogram performed post balloon dilatation. Angiogram performed post balloon dilatation. The arterial sheath was pulled and a TR Band was applied for hemostasis. 10cc air inserted INTERVENTION INFORMATION LESION SITE: RPL (1st) Lesion Complexity: Non-High/Non-C, lesion length: 18 mm, culprit lesion: Yes Pre Stenosis: 80 % Pre intervention PRABHJOT flow: 3 PROCEDURE: Drug Eluting Stent with post dilatation Post Stenosis: 0 % Post intervention PRABHJOT flow: 3 Lesion Devices: Terumo .014 180cm Runthrough Extra Floppy straight Cordis 6 Fr AL.75 100cm Guide Catheter Medtronic Resolute Nahum RX BERNARDO 2.5x08 Medtronic NC EUPHORA RX 3.0x08 BALLOON Medtronic Resolute Nahum RX BERNARDO 3.0x12 COMPLICATIONS No Complications PROCEDURE MEDICATIONS Fentanyl 50 mcg IV Versed 1 mg IV Fentanyl 25 mcg IV Oxygen: 2 L/min via nasal cannula Brilinta 180 mg PO @ 06/24/2022 09:59:28 Heparin given IA 06/24/2022 09:48:37 Heparin 5000 unit(s) IV 06/24/2022 10:12:53 Heparin 3000 unit(s) IV 06/24/2022 10:19:39 Nitro 100 mcg IC 06/24/2022 10:27:18 Verapamil 2.5mg, Ntg 100mcgs, 3000 units of Heparin given IA 06/24/2022 09:48:37 SUMMARY OF HEMODYNAMIC DATA Time AIR REST AO 109/69 (89) SA 09:49:31 LV 108/9, 20 09:56:39 LV 96/11, 21 09:56:47 LV 96/11, 14 09:57:44 LVp 95/9, 16 09:57:49 AOp 128/68 (94) 09:57:56 AO 100/49 (73) 10:18:20 ECG 10:57:40 10:59:02 Signed By Luciano Christopher MD On 06/24/2022 11:03:56 Luciano Christopher MD
--- NOTE | 2022-06-24 14:13 | CRPHASE1 ---
Patient Communication Former Patient:: Phase II PHII Cardiac Rehab Discussed with Patient:: Yes Guide to Cardiac Rehab Given to Patient:: Yes Cardiac Rehab Facility Choice List Given to Patient:: Yes Choice Program [facility] CR PHII:: Communication Given to CR Steeping Press Tender:: Luciano Christopher Phase II Cardiac Rehab:: Yes Sessions:: 36 sessions - 3 days/wk, 12 weeks Cardiac Rehabilitation Info Cardiac Rehabilitation Program Information: Cardiac Rehab The cardiac rehab team at [facility] consists of highly skilled exercise physiologists, nurses, respiratory therapists and physicians working together with you. Our purpose is to help you have a full recovery and achieve the goals you set for yourself. Over the years many of our patients have returned to activities they assumed they would never do again! We can help restore your confidence and motivation to make lifestyle changes that can have a significant impact on your health and quality of life! We can help answer questions and concerns you may have about exercise, lifestyle, medications, diet, stress and anxiety which are common following a hospitalization. WE monitor ECG and vital signs during exercise and discuss your progress with you and report to your physician(s). Cardiac Rehab is proven to help reduce readmissions, improve functional capacity and lower recurrence of problems with your heart. Our Cardiac Rehab program is Certified by the [place] [employer] of [employer]io-Vascular and Pulmonary Rehabilitation (AACVPR) and Accredited by the [place] [employer] through our [facility]. You can contact us at . We invite you to call us with your questions or to get started in our program. If you have other questions or concerns be sure to ask your physician/provider during your follow-up visit. WE look forward to seeing you!
--- NOTE | 2022-06-24 14:14 | CRPH1.INSTRU ---
General Education CAD and cardiac anatomy and function:: Patient communicates acknowledgment Explanation of diagnoses and procedures:: Patient communicates acknowledgment Sign/Symptoms of SD:: Patient communicates acknowledgment Antiplatelet therapy: Patient communicates acknowledgment Proper use of NTG-SL: Patient communicates acknowledgment Emergency procedures and activation of EMS: Patient communicates acknowledgment Compliance of all prescribed medications: Patient communicates acknowledgment Smoking Patient Nicotine/Smoking Risk Factors Are:: Non-smoker Dyslipidemia Recommendations Include:: Lipid profile not available Dyslipidemia Response Code:: Patient communicates acknowledgment Overweight/Obesity Patient Overweight/Obesity Risk Factors Are:: BMI Normal [24-29 & > 65 years old] Hypertension Patient Hypertension Risk Factors Are:: No documented hx of HTN Heart Disease Patient Heart Disease Risk Factors Are:: Previous cardiac event Recommendations Include:: Educated family members of their risk Heart Disease Response Code:: Patient communicates acknowledgment Diabetes Patient Diabetes Risk Factors Are:: No documented hx of diabetes Sedentary Patient Sedentary Risk Factors Are:: Lack of regular exercise Recommendations Include:: Aerobic exercise 5-7 times/week for 20-30 minutes continuously, Benefits of regular exercise, Discussed home walking program, Monitored Outpatient Cardiac Rehab Sedentary Response Code:: Patient communicates acknowledgment
--- NOTE | 2022-06-24 14:40 | CASEMGMT ---
JOVANNI LO Face to Face with patient for initial transition planning/care coordination assessment. RN CM introduced self and role at [facility]. Patient lying in bed, alert and oriented. Patient willing to participate in assessment and is able to answer all questions appropriately. Care providers, pharmacy, and demographics verified. Patient wishes to discharge home, denies need for home health at this time. Patient states he has no further needs or concerns at this time. CM to follow for discharge planning needs that may arise. PCP: Satish Specialists: Angelique channel rougher Travis Keita Preferred Pharmacy: Johny Mccarthy; [facility] at discharge. Insurance: [facility], [employer] Prescription Benefit: yes, patient was on Brilinta previously and believes he may have already used his one time savings card. Will monitor. Living Will/HPOA: none LNOK: Living Arrangements: Patient lives with in a 2 story home. Patient states he is independent and able to ambulate stairs. Transportation: self, DME/HHC: Patient states he has walker, higher toilets, and bipap at home. No previous HHC or SNF Disposition Plan: Patient to discharge home with family support and follow-up plans in place. Caity PEREZ, RN, CM
--- NOTE | 2022-06-24 16:12 | PN.HOSP_ITS ---
Subjective Subjective Patient states that his chest pain was similar to previous episodes when he received a stent however not as severe. Currently chest pain-free. Patient was taken to the [facility] where intervention to the RCA was performed. Objective Data Objective Data Vital Signs: Vital Signs Temp Pulse Resp BP Pulse Ox O2 Del Method 97.7 F L 69 15 114/70 97 Room Air 06/24/22 11:07 06/24/22 13:16 06/24/22 13:16 06/24/22 13:16 06/24/22 13:16 06/24/22 14:12 Oxygen Delivery Method Room Air Weight: 80.1 kg Body Mass Index (BMI) 23.9 Lab / Micro Data Result Diagrams: 06/24/22 03:51 06/23/22 22:00 Labs: Laboratory Results - last 24 hr 06/23/22 22:00: WBC 12.2 H, RBC 4.01 L, Hgb 12.4 L, Hct 37.3 L, MCV 93.0, MCH 30.9, MCHC 33.2, RDW Std Deviation 47.4 H, RDW Coeff of David 13.9, Plt Count 231, MPV 11.2, Immature Gran % (Auto) 0.300, Neut % (Auto) 85.9 H, Lymph % (Auto) 9.0 L, Sawyer % (Auto) 4.0, Eos % (Auto) 0.4, Baso % (Auto) 0.4, Absolute Neuts (auto) 10.5 H, Absolute Lymphs (auto) 1.09, Nucleated RBC % 0 06/23/22 22:00: PT 13.8, INR 1.1, APTT 26.6 06/23/22 22:00: Sodium 141, Potassium 4.2, Chloride 109 H, Carbon Dioxide 26.0, Anion Gap 6, BUN 29 H, Creatinine 0.97, Estim Creat Clear Calc 75.56, Est GFR (MDRD) Af Amer 98, Est GFR (MDRD) Non-Af 81, BUN/Creatinine Ratio 29.9 H, Glucose 97, Calcium 8.8, Troponin I High Sens 6 06/24/22 00:30: Troponin I High Sens 46 06/24/22 03:51: Triglycerides 34, Cholesterol 109, LDL Cholesterol 53, VLDL Cholesterol 7, HDL Cholesterol 49 06/24/22 03:51: WBC 9.3, RBC 3.94 L, Hgb 12.0 L, Hct 36.5 L, MCV 92.6, MCH 30.5, MCHC 32.9, RDW Std Deviation 47.4 H, RDW Coeff of David 13.9, Plt Count 221, MPV 11.1, Immature Gran % (Auto) 0.300, Neut % (Auto) 78.6 H, Lymph % (Auto) 16.0 L, Sawyer % (Auto) 4.5, Eos % (Auto) 0.2, Baso % (Auto) 0.4, Absolute Neuts (auto) 7.3, Absolute Lymphs (auto) 1.49, Nucleated RBC % 0 06/24/22 03:51: Troponin I High Sens 301 H* Radiography Diagnostic Testing: Radiology Impression Chest X-Ray 06/23/22 22:15 IMPRESSION: No radiographic evidence of acute cardiopulmonary disease. Electronically Signed: Tom Motta MD at 22:27 EST Reading Location ID and State: [address] [place] [address] Tel , Service support , Echocardiogram 06/24/22 05:55 Interpretation Summary Normal LV size. Left ventricular systolic function is normal. The estimated ejection fraction is 60 %. Pulmonary artery systolic pressure is 30 mmHg. Ordering Physician: Junior Aguayo Referring Physician: Gallito Covarrubias Performed By: Natalie Echevarria, MILYCS, RVT Physical Exam Const alert, oriented x3, no apparent distress and well nourished Constitutional Narrative: Thin, older white male, appears younger than stated age, sitting up in bed and appears comfortable, nontoxic HEENT head/scalp atraumatic and moist oral mucous membranes Head and Scalp: normocephalic Resp normal respiratory effort, no retractions, no use of accessory muscles and clear to auscultation bilaterally Auscultation: Negative for rales, rhonchi or wheezes Cardio regular rate, regular rhythm, S1 normal heart sound, S2 normal heart sound, no murmurs, no rub, no gallops and no clicks GI normal to inspection, nondistended, normoactive bowel sounds, soft to palpation and non-tender Extremity no clubbing, cyanosis or edema Extremity Narrative: 2+ pedal pulses Neuro oriented x3, moves all extremities and no focal motor deficits Speech: speech normal Psych affect normal Assessment & Plan Assessment/Plan (1) NSTEMI (non-ST elevated myocardial infarction): PLAN: Plan NSTEMI -Initial troponin was normal but subsequent rise was observed -Patient was taken to [facility] -RCA stent placed -Continue aspirin 81 mg -Continue atorvastatin 80 mg nightly -Continue metoprolol 12.5 mg p.o. twice daily -Continue Brilinta 90 mg p.o. twice daily -Could consider addition of MC inhibitor depending on blood pressure response -Cardiology following-appreciate input Hyperlipidemia -Total cholesterol is 109/LDL is 53/HDL 49/triglycerides 34 -Continue home high-dose atorvastatin 80 mg at at bedtime CAD -See above Leukocytosis -Current white count is 12.2 -Suspect related to acute reaction related to his cardiac event DVT Prophylaxis -Low risk -Ambulation -Likely discharge tomorrow CODE STATUS Full code Charges/Coding Visit Charges Inpatient E&M: 24931 Subs Hosp L2
[2022-06-24 17:48] LABS: ACT Activated Clotting Time 239 sec (74-137)
[2022-06-24 17:48] LABS: ACT Activated Clotting Time 227 sec (74-137)
[2022-06-24] MEDS: TICAGRELOR 90 MG TABLET PO (21:42)
[2022-06-24] MEDS: Atorvastatin Calcium 80 MG Tablet PO (21:42)
[2022-06-25 02:56] VITALS: PULSE 64
[2022-06-25 03:31] VITALS: BP 117/71; PULSE 63; RESP 14; TEMP 36.6; O2SAT 94
[2022-06-25 04:15] LABS: Hematocrit 37.3 % (40-54); Hemoglobin 12.2 g/dL (13.0-16.5); Mean Corp Hgb Conc 32.7 g/dL (32-36); Mean Corpuscular Hgb 30.3 pg (27.0-32.0); Mean Corpuscular Volume 92.6 fL (80-94); Mean Platelet Vol. 11.3 fl (6.2-12.0); Platelet Count 234 K/mm3 (150-450); RBC Distribution Width CV 14.2 % (11.6-14.6); RBC Distribution Width SD 48.5 fl (35.1-43.9); Red Blood Count 4.03 M/mm3 (4.6-6.2); White Blood Count 7.2 K/mm3 (4.4-11.0)
[2022-06-25 04:45] LABS: ALB/GLOB Ratio 1.1 RATIO (0.9-2.4); AST(SGOT) 26 U/L (15-37); Alanine Aminotransfer ALT/SGPT 30 U/L (16-61); Albumin, Serum 3.3 g/dL (3.2-5.0); Alkaline Phosphatase 75 U/L (45-117); Anion Gap 8 (5-15); BUN 25 mg/dL (7-18); BUN/Creat Ratio 26.2 RATIO (10-20); Calcium,Total 8.5 mg/dL (8.5-10.1); Chloride 109 mmol/L (98-107); Creatinine, Serum 0.95 mg/dL (0.70-1.30); EST Glomerular Filtration Rate 82 mL/min (>60); Est Glom Filt Rate - Afr Amer 100 mL/min (>60); Estimated Creatinine Clearance 77.15 ml/min; Glucose 82 mg/dL (74-106); Protein, Total 6.3 g/dL (6.4-8.2); Sodium Level 140 mmol/L (136-145)
[2022-06-25 07:41] VITALS: O2SAT 94
[2022-06-25] MEDS: Aspirin 81 MG TAB.CHEW PO (08:13)
[2022-06-25 09:31] VITALS: BP 109/77; PULSE 73; RESP 16; TEMP 36.7; O2SAT 95
[2022-06-25 09:50] VITALS: BP 109/77; PULSE 74
[2022-06-25] MEDS: Metoprolol Tartrate 25 MG Tablet 12.5 MG PO (09:50)
[2022-06-25] MEDS: TICAGRELOR 90 MG TABLET PO (09:50)
[2022-06-25] MEDS: 0.9% Saline Lock 10 ML Syringe IV (09:50)
--- NOTE | 2022-06-25 10:00 | EKG12_ITS ---
Test Reason : AM Blood Pressure : / mmHG Vent. Rate : 059 BPM Atrial Rate : 059 BPM P-R Int : 188 ms QRS Dur : 088 ms QT Int : 416 ms P-R-T Axes : 060 065 050 degrees QTc Int : 411 ms Sinus bradycardia Otherwise normal ECG Confirmed by VELASQUEZ PRADO, DIXON ([id number]), health editor MEMO BAILEY ([id number]) on 06/26/2022 9:06:54 AM Referred By: Confirmed By:DIXON ENG MD
--- NOTE | 2022-06-25 11:23 | DS.PCM_ITS ---
Providers Date of Admission: 06/24/22 Date of Discharge: 06/25/22 Primary Care Physician: Dr. Gallito Covarrubias DO Reason For Visit: CHEST PAIN Diagnosis Discharge Diagnosis (1) NSTEMI (non-ST elevated myocardial infarction): Status: Acute Code(s): I21.4 - Non-ST elevation (NSTEMI) myocardial infarction Medications at Discharge Home Medications Nitroglycerin 0.4 mg sublingual PRN Cardiac/Chest Pain 12/26/16 aspirin 81 mg chewable tablet 81 mg PO DAILY@0800 12/26/16 atorvastatin 80 mg tablet 80 mg QHS 12/26/16 metoprolol tartrate 25 mg tablet 12.5 mg PO BID 12/26/16 clopidogrel 75 mg tablet (Plavix) 75 mg PO DAILY #30 tabs 06/25/22 Hospital Course Operations None Procedures 2-D Echocardiogram, Cardiac catheterization and EKG Summary of Care Provided Minutes Spent on Discharge: 36 Hospital Course: Mr. Pryor is a 71-year-old white male who presented to the emergency department at [facility] on 06/23/2022 complaining of sharp persistent chest pain that started approximately 1 hour prior to presentation. Pain was on the left side of his chest and radiated through to his scapula on the left side. It came on suddenly after shoveling snow. He indicated he took 2 nitroglycerin and his pain did not improve. Paramedics gave him 4 baby aspirin and his pain started to subside with that. He had some associated diaphoresis and shortness of breath but no nausea or vomiting. He does have previous history of NSTEMI 4 years ago and had a stent placed at [facility]. He was adm itted to telemetry and maintained on aspirin statin, metoprolol and his cardiac enzymes were cycled. His initial troponin was 6 however his subsequent troponin increased to 46 and then 301. Cardiology was consulted and took him to the [facility] where he was found to have moderately severe disease of the proximal posterior lateral right coronary artery with a patent stent in the circumflex and preserved ejection fraction. Drug-eluting stent was placed at that time and Brilinta was initiated in addition to the above medication. Echocardiogram was performed and revealed an EF of 60% with normal LV function and a pulm artery systolic pressure of 30 mmHg. A lipid panel was obtained and he was found to have a total cholesterol of 109/LDL 53/HDL 49/triglycerides of 34. His blood glucose levels are normal. He was monitored overnight after the catheterization and had no significant abnormalities with his cardiac rhythm. He unfortunately had to use his Brilinta card previously so we did transition him to Plavix. He was given 300 mg p.o. prior to discharge and then placed on Plavix 75 mg daily to follow. Prescriptions for this were sent to the pharmacy prior to discharge. He was discharged home in stable condition on 06/25/2021. He has a follow-up appointment with cardiology on 07/16/2021. I have instructed him to follow-up with his primary care physician within the next 4 weeks. He is to remain on his aspirin, atorvastatin 80 mg nightly, and metoprolol at home. Discharge diagnoses: NSTEMI CAD Hyperlipidemia Leukocytosis-resolved Physical Exam Narrative Patient states he is feeling well this morning. Did not sleep well overnight so he is a bit fatigued but other than that feels well. No chest pain through the night. No arrhythmias. Const alert, oriented x3, no apparent distress and well nourished Constitutional Narrative: Thin, older white male, appears younger than stated age, sitting up in bed and appears comfortable, nontoxic General Appearance: cooperative, comfortable, well kempt and well developed Orientation / Consciousness: awake, oriented to person, oriented to place and oriented to time Exam Limitations: no limitations HEENT normocephalic, head/scalp atraumatic, hearing grossly normal bilaterally and moist oral mucous membranes HEENT Narrative: Mallampati 2, no thrush Eyes PERRL, EOMs intact bilaterally and conjunctivae normal Eyes Narrative: No scleral icterus Neck no lymphadenopathy and supple Neck Narrative: Trachea midline, no thyroid enlargement Resp normal respiratory effort, no retractions, no use of accessory muscles and clear to auscultation bilaterally Auscultation: Negative for rales, rhonchi or wheezes Cardio regular rate, regular rhythm, S1 normal heart sound, S2 normal heart sound, no murmurs, no rub, no gallops and no clicks GI normal to inspection, nondistended, normoactive bowel sounds, soft to palpation and non-tender Extremity no clubbing, cyanosis or edema Extremity Narrative: 2+ pedal pulses Skin no rashes or lesions noted, no wounds, skin turgor normal and no jaundice Skin Narrative: Right wrist without any signs of ecchymosis or significant tenderness Neuro oriented x3, CN's II-XII intact bilaterally, moves all extremities and no focal motor deficits Speech: speech normal Motor Exam: strength 5/5 throughout Psych affect normal Psych Narrative: Very pleasant and appropriately interactive Weight / BMI Weight Weight: 80.1 kg Body Mass Index (BMI) 23.9 ABG / Lab / Microbiology Data Result Diagrams: 06/25/22 03:34 06/25/22 03:34 Laboratory: Laboratory Results - last 24 hr 06/24/22 10:15: Activated Clotting Time 227 H 06/24/22 10:40: Activated Clotting Time 239 H 06/25/22 03:34: WBC 7.2, RBC 4.03 L, Hgb 12.2 L, Hct 37.3 L, MCV 92.6, MCH 30.3, MCHC 32.7, RDW Std Deviation 48.5 H, RDW Coeff of David 14.2, Plt Count 234, MPV 11.3 06/25/22 03:34: Sodium 140, Potassium 4.0, Chloride 109 H, Carbon Dioxide 23.0, Anion Gap 8, BUN 25 H, Creatinine 0.95, Estim Creat Clear Calc 77.15, Est GFR (MDRD) Af Amer 100, Est GFR (MDRD) Non-Af 82, BUN/Creatinine Ratio 26.2 H, Gl ucose 82, Calcium 8.5, Total Bilirubin 1.00, AST 26, ALT 30, Alkaline Phosphatase 75, Total Protein 6.3 L, Albumin 3.3, Globulin 3.0, Albumin/Globulin Ratio 1.1 D/C Instructions Discharge Diet: Low fat / Low cholesterol Discharge Activity: Return to Normal Activity Return to work on: 06/26/22 Meaningful Use Info Meaningful Use Diagnoses (Choose all that apply): AMI AMI/Post PCI/Angioplasty Aspirin given w/in 24hrs of arrival?: Yes ASA at discharge?: Yes Antiplatelet Therapy at Discharge:: Yes Statins at discharge?: Yes Lee/ARB at discharge?: No Reason Lee/ARB not ordered:: Hypotension Beta Arjun at discharge?: Yes Done w/ Acute TN measure.: Yes Documented LVEF (%): 60 Discharge Plan Admission Admit Date/Time: 06/24/22 13:53 Primary Reason for Your Visit: Chest Pain Attending Provider: Nasima Dodd Primary Care Provider: Gallito Covarrubias Consulting Providers: Junior Aguayo Discharge Orders/Prescriptions Prescriptions: New clopidogrel [Plavix] 75 mg tablet 75 mg PO DAILY Qty: 30 11RF Continued atorvastatin 80 MG tablet 80 mg QHS aspirin 81 MG tablet,chewable 81 mg PO DAILY@0800 metoprolol tartrate 25 MG tablet 12.5 mg PO BID Nitroglycerin 0.4 MG 0.4 mg sublingual PRN (Reason: Cardiac/Chest Pain) Referrals / Follow Up: Gallito Covarrubias DO [Primary Care Provider] - Within 1 Month Samm Echevarria NP, DETAIL TECHNICIAN-C [Med Staff - Adv Practice Prof] - 07/16/23 10:00 am Disposition Disposition (needs filled in before D/C Order can be placed): Home, Self Care Charges/Coding Visit Charges Inpatient E&M: 93699 Disch Hosp >30min
[2022-06-25] MEDS: Clopidogrel Bisulfate 300 MG Tablet PO (11:36)
[2022-06-25 13:45] VITALS: BP 117/68; PULSE 78; RESP 16; TEMP 36.7; O2SAT 97
== END 2022-06-25 15:15 | disposition home or self-care (01) | DRG 247 ==
LOC: ED 23:45 → PCU 23:58
PROVIDERS: Internal Medicine Cardiovascular Disease; Admitting Provider Hospitalist; Emergency Provider Emergency Medicine; PCP Family Medicine; Visit Provider Internal Medicine
DX: I21.4 Non-ST elevation (NSTEMI) myocardial infarction (principal); D72.829 Elevated white blood cell count, unspecified; I10 Essential (primary) hypertension; I25.10 Atherosclerotic heart disease of native coronary artery without angina pectoris; E78.5 Hyperlipidemia, unspecified; I25.2 Old myocardial infarction; Z95.5 Presence of coronary angioplasty implant and graft; Z79.82 Long term (current) use of aspirin; Z79.02 Long term (current) use of antithrombotics/antiplatelets; Z87.891 Personal history of nicotine dependence
CPT/HCPCS: 36415; 71046; 80048; 80053; 80061; 84484; 85025; 85027; 85347; 85610; 85730; 92928; 93005; 93306; 93458; 99152; 99153; 99285; J7030; Q9967; A4216; C1725; C1769; C1874; C1887; C1894; C9600; J1327

== ENCOUNTER → 2022-07-03 | Outpatient (CLI) | payer MEDICARE, OTHER, SELFPAY ==
--- NOTE | 2022-07-03 08:03 | CR.HP_ITS ---
CR - History & Physical - General Arrival date:: 07/03/22 Arrival time:: 08:03 Date of Referral:: 06/25/22 Date of CR Evaluation:: 07/03/22 Referring Physician: Dr. Titus Jain Primary Diagnosis: NSTEMI, PCI with coronary stent - History of Present Cardiac Event Onset Date: Enter Onset Date of cardiac illnesses in Comment field below PTCA or coronary stenting:: Yes - Sleep Disorder Evaluation Hx of Sleep Apnea: Yes Do you snore loudly (louder than talking or can be heard through closed doors)?: No Do you often feel tired/ fatigued/ sleepy during daytime?: No History of Hypertension (for STOP score): Yes - uses bipap - Medications Home Medications: Ambulatory Orders Medication Instructions Recorded Nitroglycerin 0.4 mg sublingual PRN 12/26/16 Cardiac/Chest Pain aspirin 81 mg chewable tablet 81 mg PO DAILY@0800 heart health 12/26/16 atorvastatin 80 mg tablet 80 mg QHS cholesterol 12/26/16 metoprolol tartrate 25 mg tablet 12.5 mg PO BID blood pressure 12/26/16 clopidogrel 75 mg tablet (Plavix) 75 mg PO DAILY #30 tabs 06/25/22 - Allergies Allergies/Adverse Reactions: Allergies No Known Allergies Allergy (Verified 06/23/22 22:01) Advanced Directives - Advanced Directives Power of Database Marketing Specialist: No Living Will: No Advance Directives Information Provided: No Advance Directives on File: No DNR Order?:: No Past Medical History - Covid-19 Screening 65 years or older:: Yes Has a serious heart condition:: Yes - Past Medical Illness Medical History: Past Medical History (Last Updated 06/25/22 @ 07:54 by Ping Reagan) Atherosclerosis of coronary artery of [place] heart without angina pectoris I25.10 History of CAD (coronary artery disease) Z86.79 HTN (hypertension) I10 Myocardial infarct I21.9 - Past Surgical History Surgical History: Past Surgical History (Last Updated 06/25/22 @ 07:56 by Ping Reagan) History of coronary artery stent placement Onset Date: ~06/24/22 Z95.5 BERNARDO Prox RPLV-Resolute [facility] 2.5x8mm and 3.0x12mm Hx of skin graft Z94.5 Surgical History: tonsillectomy - at 9 years old., - - skin cancer surgery - Family History Summary Family History: Family History (Last Reviewed 06/24/22 @ 09:[address] Titus Jain MD) Other Diabetes Heart disease Social History - Smoking History Smoking Status: Former smoker Years Smokin Packs Smoked per Day: 1 - stopped 10-15 years ago - Alcohol Use Alcohol Usage: Yes - socially - Occupation Occupation (List type of work in comments):: Retired - Hobbies, Recreation, Social Activities Hobbies: Other - animals Recreational Activities: I am able to engage in all my recreational activities Social Environment - Status Marital Status: - Current Living Arrangements Living Environment:: Spouse - Children How many children do you have?: 5 Do any of your children live nearby?: Yes - Safety Do you feel safe in your surroundings?: Yes - Assistance Do you need any assistance at home?: no Review of Systems - Review of Systems Hints: Right click = Denies (Slash). Left click = Reports ([place]) Review of Present Symptoms: Reports: Fatigue, Appetite - Normal, Appetite - Special Diet. Denies: Shortness of Breath at Rest, Shortness of Breath with Exertion, PVD, Operative Discomfort, Angina, Wound Healing, Dizziness/Lightheadedness, Heart Arrhythmia/Irregularities, Sleep - Normal, Sexual Changes - Pain Is Patient Pain Free?: Yes Pain Location: none Risk Factor Assessment - Vital Signs Pulse Ox: 96 - Pulse Pulse Rate: 64 Pulse Rhythm: Regular - Hypertension Blood Pressure Sitting - Left Arm: 104/62 - Diabetes Nutrition Referral for Diabetes: No - Obesity Height: 6 ft Weight:: 80.24 kg Weight in Pounds: 176.9 lbs Body Mass Index (BMI): 24.0 Nutritional Referral for Obesity: No - Physical Inactivity Physical Inactivity: Reg Exercise 30 min/day - Risk Stratification Risk Guidelines: Lowest Risk: Risk Factor for Smoking, Moderate Risk: Risk Factor for Dyslipidemia, Risk Factor for Diabetes, Risk Factor for Obesity, Risk Factor for Hypertension, Risk Factor for Sedentary Lifestyle, Risk Factor for Depression - Family History Family History: Family History (Last Reviewed 06/24/22 @ 09:[address] Titus Jain MD) Other Diabetes Heart disease Motivation - Motivation to Participate On a scale of 1 to 10, how prepared are you to commit to attending program?: 10 What do you see as barriers to successfully being able to complete the program?: nothing What do you see as the benefits of succesfully completing the program? In other words, what do you hope to get out of participating in the program?: energy, back in shape Are there issues you are dealing with that will interfere with completing the program?: no Do you have a spouse or signficant other, family or friends who will help support you to complete the program?: yes
[2022-07-03 09:02] VITALS: BP 104/62; PULSE 64; O2SAT 96; BMI 24.0
--- NOTE | 2022-07-03 09:02 | PCM.CR.ITP ---
Diagnosis - General Information Admitting Diagnosis: NSTEMI, PCI with coronary stent Personal Learning Style:: Audio/Visual, Demonstration, Group, Individual Preference, Written Gave educational material for:: Treating Heart Disease, Emotions & Heart Disease, Stress Management & Relaxation, Sleep Disorders & Heart Disease, How The Heart Works, What it means to have Heart Disease, How Coronary Artery Disease is Diagnosed, Heart Procedures, What Heart Medications Do, Risk Factors & Modifications, Living an Active Life, Nutrition - Education/Goals Cardiac Rehabilitation Goals: 1. Maintain the individual as the primary focus of care. 2. To improve the patient's quality of life. 3. Identification of cardiac risk factors and provide cardiac risk factor management. 4. Enhance the psychosocial status of the patient. 5. Reconditioning enough to allow the patient to resume customary activities. 6. Control symptoms of cardiac disease Personal Goals: Initial Assessment: Improve management of stress and emotions, Improve energy level, Participate in home exercise program, Get back to work, or to resume activities faster, Improve muscle strength and endurance, Improve diet and eating habits (eat healthier), Control risk factors (learn risk factor modification) Scale for measuring improvement of personal goals: Enter appropriate number in Comments. 2 = Unchanged. 3 = Slightly Better. 4 = Moderate Improvement. 5 = Met my Goal Exercise - Initial Assessment - Visit Date of Eval: 07/03/22 - initial eval Mets: Pre-: >3 METS for 30 minutes by discharge, >5 METS for 30 minutes by discharge, >7 METS for 30 minutes by discharge, Unable to meet goal due to: (see comment below) - Physician Prescribed Exercise Modalities: Treadmill, Rower, Airdyne, NuStep, SciFit, Lateral Driver License Examiner Frequency: 2x/week for 18 weeks [36 sessions], 3x/week for 12 weeks [36 sessions] Intensity: 60-80% of age predicted maximum heart rate reserve Current METSs:: 3 Target Heart Rate:: 96-112 Resting Blood Pressure: 104/62 - Outcomes & Goals Goals:: Verbalizes understanding of THR, RPE & goal METS by session 6, Documents in home exercise log/reports 30 min aerobic 5 day/wk by DC, Demonstrates accurate pulse taking by DC, Other additional outcome/goals: see below - Intervention & Plan Exercise Program Goals: Instruct on personal THR & RPE, Instruct on MET level & personal MET goal, Show patient to take own pulse /validate performance until accurate, Instruct on home exercise, Other additional plan/int - Physical Activity Home Exercise Physical Activity - Home Exercise: Safe Exercise, Warm-up, Self-monitoring, Cool-Down, Home Exercise > 30 min Daily, Sitting Time <3 hours/daily - Outcomes & Goals Outcomes/Goals: Demonstrates correct Warm-up/exercise Cool-Down (S3) if = 2.5 METs, Verbalizes symptoms of exercise intolerance by Session 3 (S3), Demonstrate safe equipment use (S3) & follows exercise prescrition (6), Other: See below - Intervention & Plan Plan/Intervention: Instruct warm-up & cool-down if exercising at > 2 METs, Instruct on symptoms of exercise intolerance & actions to take, Instruct & monitor on saf, Assess intial functional capacity & safety risk, Other See below Nutrition - Initial Assessment - Program Goals Nutrition Program Goals: LDL <100 optimal. 100 - 129 Near optimal. 130 - 159 Borderline High. 160 - 189 High. Total Cholesterol <200 desirable. 200 - 239 Borderline High. >/= 240 High. HDL < 40 Low >/=60 High. Triglycerides <150 desirable. <199 optimal. VlDL 5 - 40. HgbA1C <7%. BMI <25 Patient has diagnosis of Hyperlipidemia (ICD E78)?: Yes - Visit Date of Assessment:: 07/03/22 - initial eval - Cholesterol/Lipids (Other Core Measures) Determine presence & major risk factors that modify LDL goal: Cigarette smoking, Hypertension or hypertensive medication, Low HDL cholesterol <40 mg/dL*, Family history of premature CHD in Male < 55 years: female <65 yearsFa, Age men > 45 years; women >/= 55 years Outcomes/Goals: Pt IDs own risk factors & lifestyle modifications by Session 10, Verbalizes symptoms of angina & response by session 3., Pt independently manages, Other Additional Outcomes/Goals: Intervention/Plan: Advocate for lipid panel cholesterol medication if applicable, Instruct on personal lipid levels & lipid goals/NCEP guidelines, Instruct on cholesterol, Other additional plan/int Referral to dietitian:: No - Diabetes (Other Core Measures) Diabetes Type: Not Applicable - Weight Mgt (Other Care) Height: 6 ft Weight:: 80.24 kg BMI: 24.0 Diagnosis Overweight/Obesity BMI> 30% ICD-10 E66: No Diagnosis High BMI/Morbid Obesity BMI> 35% ICD-10 Z68: No Outcomes/Goals: Pt sets, maintains & shows weight loss goal & trend during rehab, Other additional outcomes/goals Intervention/Plan: Instruct on ideal BMI & set weight loss goal w/patient, Assist pt to ID & incorporate diet changes for weight loss by S9, Refer to Structured Weight Loss program as appropriate, Encourage goal of using 250-300dcal per session for weight loss, Other additional plan/interventions - Healthy Eating Habits Will attend diet classes:: Yes Outcomes/Goals:: Consume diet rich in vegs,fruits,whole grain/high fiber,fish,lean meat, Limit sat/trans fats,cholesterol & added salts & sugars, Other additional outcome/goals: Intervention/Plan:: Assess current eating habits, Other Additional plan/interventions - Education Gave educational materials for:: Signs & symptoms of hypoglycemia, Signs & symptoms of hyperglycemia, Relate diabetes to coronary artery disease, Healthy eating Nutrition - 30-Day Assessment Nutrition - 60-Day Assessment Nutrition - 90-Day Assessment Nutrition - Final Assessment Core - Initial Assessment - Visit Date of Eval: 07/03/22 - initial eval - Medication Compliance Preventative Medication(s):: Clopidogrel/P2Y12 inhibit, Statin/lipid, Beta yoon H/O mental health issues: depression, anxiety, or addiction?: No Outcomes/Goals: Verbalizes medications,desired effect & common side effects @ DC, Pt self-reports following medication regimen, Keeps card in wallet w/medications listed by DC, Other additional outcome/goals: Interventions/plans: Instruct on medication effects & side effects, Review medication list w/patient every two weeks, Instruct importance of taking meds as ordered & assist problem solving, Other additional - Tobacco Use Tobacco Use: Non-smoker How long ago did you quit using tobacco products?: Greater than or equal to 6 months ago Do you use smokeless tobacco?: No - Hypertension Resting Blood Pressure:: 104/62 [place] [employer] Hypertension Guidelines: [place] [employer] Hypertension Guidelines. Normal BP Less than 120/80. Elevated BP 120/80. Hypertension Stage 1: BP 130-139/80-89. Hypertesnion Stage 2: BP 140 or higher/90 or higher. Hypertension Crisis: BP higher than 180/120 Outcomes/Goals: Able to verbalize/achieve optimal blood pressure <130/80, Incorporates diet changes & exercise for blood pressure control by DC, Other additional outcomes/goals Interventions/plan: Instruct on optimal blood pressure, hypertension & medications, Instruct on effects of sodium, alcohol, stress, exercise &hypertension, Other additional plan/interventions - Tobacco Cessation Referral Smoking Cessation Referral:: No Individual Education/Counseling:: No Education Schedule Given:: Yes Core - 30-Day Assessment Core - 60-Day Assessment Core - 90 Day Assessment Core - Final Assessment Psychosocial - Initial Assess - VIsit Date of Eval: 07/03/22 - initial eval History of previous Mental disease:: No Psychosocial - 30-Day Assess Psychosocial - 60-Day Assess Psychosocial - 90-Day Assess Psychosocial - Final Assessmen Patient Health Questionnaire Initial Assessment 1. Little interest or pleasure in doing things: Several days 2. Feeling down, depressed, or hopeless: Several days 3. Trouble falling or staying asleep, or sleeping too much: Several days 4. Feeling tired or having little energy: Several days 5. Poor appetite or overeating: Not at all 6. Feeling bad about yourself -- or that you are a failure or have let yourself or your family down: Several days 7. Trouble concentrating on things, such as reading the newspaper or watching television: Not at all 8. Moving or speaking so slowly that other people could have noticed. Or the opposite - being so fidgety or restless that you have been moving around a lot more than usual: Not at all 9. Thoughts that you would be better off , or of hurting yourself in some way: Not at all How difficult have these problems made it for you to do your work, take care of things at home, or get along with other people?: Not difficult at all Total Score: 5 EBENEZER-Q SV Test - Statements CAD is a disease of the arteries in the heart: False Examples of risk factors for heart disease: True Angina is chest pain or discomfort: True The benefits of resistance training include: True Eating more meat and dairy products: False Anti-platelet medications such as aspirin are important: True The only effective way to manage stress: False An exercise warm-up slowly increases heart rate: True Prepared, processed foods usually have high sodium: True Depression is common after a heart attack: True The statin medications lower cholesterol: True To control blood pressure, lower the amount of sodium: True If someone gets chest discomfort during walking: False Transfats are partially hydrogenated vegetable oils: True Sleep apnea that is not treated increases the risk: False To control cholesterol, one should become a vegetarian: True Someone knows if he/she is exercising at the right level: True Diabetes cannot be prevented with exercise & health eating: False Stress is a large risk for heart attack: True A diet that can help lower blood pressure is rich in: True - Total Score Total Correct Responses: 19 Self-Efficacy Initial Assessment We would like to know how confident you are in doing certain activities. Please select your confidence level for:: Select your confidence level for the following using the scale 1-10 where 1 is not at all confident and 10 is totally confident. Your score is the average of all 6 responses. Fatigue: How confident are you that you can keep the fatigue caused by your disease from interfering with the things you want to do? Select Number: 10 Physical Discomfort or Pain: How confident are you that you can keep the physical discomfort or pain of your disease from interfering with the things you want to do? Select Number: 10 Emotional Distress: How confident are you that you can keep the emotional distress caused by your disease from interfering with the things you want to do? Select Number: 9 Other Symptoms or Health Problems: How confident are you that you can keep other symptoms or health problems from interfering with the things you want to do? Select Number: 9 Different Tasks and Activities: How confident are you that you can do the different tasks and activities needed to manage your health condition so as to reduce your need to see a doctor? Select Number: 9 Medication: How confident are you that you can do things other than just taking medication to reduce how much your illness affects your everyday life? Select Number: 10 Total Score:: 9 Nutrition Survey - Nutrition Survey Initial Have you lost >10 lbs over the past 2 months without trying?: No Are you following a special diet at home for diabetes, low fat, or low salt?: Yes Are you interested in meeting with a dietitian for help understanding your diet?: No Do you eat less than 3 meals a day?: No Do you eat fatty meats (linares, sausage, ribs, etc), fried foods, desserts, large amounts of salad dressings, margarine, butter, or cheese most days?: No Do you have food allergies? [Enter types in comment field]: No Do you eat in restaurants more than 3 times a week?: No Do you season food with salt, seasoning salt, or garlic salt?: No Do you used canned, boxed, frozen meals, or soups, seasoning packets?: Yes Total Score:: 2
[2022-07-03 09:11] VITALS: BP 104/62; BMI 24.0
== END | disposition home or self-care (01) ==
LOC: CR 06:43
PROVIDERS: PCP Family Medicine; Visit Provider Internal Medicine Cardiovascular Disease
DX: I25.2 Old myocardial infarction (principal); Z95.5 Presence of coronary angioplasty implant and graft

== ENCOUNTER → 2022-07-19 | Outpatient (CLI) | payer MEDICARE, OTHER, SELFPAY ==
[2022-07-03 09:11] VITALS: BMI 24.0
[2022-07-19 12:36] LABS: PSA,Total - Annual Screen 4.11 ng/mL (0.00-4.00)
== END | disposition home or self-care (01) ==
LOC: BFHLAB 09:18
PROVIDERS: PCP Family Medicine; Visit Provider Family Medicine
DX: Z12.5 Encounter for screening for malignant neoplasm of prostate (principal)
CPT/HCPCS: 36415; 84153; G0103

== ENCOUNTER 2022-07-29 14:30 | Outpatient (RCR) | payer MEDICARE, OTHER, SELFPAY ==
[2022-07-03 09:11] VITALS: BMI 24.0
== END 2022-07-30 23:59 ==
LOC: CR 14:30
PROVIDERS: PCP Family Medicine; Referring Provider Internal Medicine Cardiovascular Disease; Visit Provider Internal Medicine Cardiovascular Disease
DX: I21.4 Non-ST elevation (NSTEMI) myocardial infarction (principal); Z95.5 Presence of coronary angioplasty implant and graft
CPT/HCPCS: 93798

== ENCOUNTER 2022-08-30 14:30 | Outpatient (RCR) | payer MEDICARE, OTHER, SELFPAY ==
[2022-07-03 09:11] VITALS: BMI 24.0
--- NOTE | 2022-08-05 08:34 | PCM.CR.ITP ---
Diagnosis Exercise - 30-day Assessment - Visit Date of Eval: 08/05/22 Session #:: 11 - Physician Prescribed Exercise Modalities: Treadmill, Airdyne, NuStep Frequency: 3x/week for 12 weeks [36 sessions] Intensity: 60-80% of age predicted maximum heart rate reserve Duration: 30 - 45 minutes Current METSs:: 7.0 Target Heart Rate:: 112-126 Current RPE:: 13-14 Maximum Excercise HR:: 120 Resting Blood Pressure: 128/68 Maximum Exercise Blood Pressure: 172/80 EKG Type: NSR to sinus tach w/rare PAC PVC Current Physical Activity or Exercising minutes: 40 - Outcomes & Goals Goals:: Verbalizes understanding of THR, RPE & goal METS by session 6, Documents in home exercise log/reports 30 min aerobic 5 day/wk by DC, Demonstrates accurate pulse taking by DC - Intervention & Plan Exercise Program Goals: Instruct on personal THR & RPE, Instruct on MET level & personal MET goal, Show patient to take own pulse /validate performance until accurate, Instruct on home exercise - 30-day Reassessments 30 day Reassessments:: Progressing - Physical Activity Home Exercise Physical Activity - Home Exercise: Safe Exercise, Warm-up, Self-monitoring, Cool-Down, Home Exercise > 30 min Daily, Sitting Time <3 hours/daily - Outcomes & Goals Outcomes/Goals: Demonstrates correct Warm-up/exercise Cool-Down (S3) if = 2.5 METs, Verbalizes symptoms of exercise intolerance by Session 3 (S3), Demonstrate safe equipment use (S3) & follows exercise prescrition (6) - Intervention & Plan Plan/Intervention: Instruct warm-up & cool-down if exercising at > 2 METs, Instruct on symptoms of exercise intolerance & actions to take, Instruct & monitor on saf, Assess intial functional capacity & safety risk - 30-day Reassessments 30 day Reassessments:: Met Nutrition - Initial Assessment Nutrition - 30-Day Assessment - Program Goals Nutrition Program Goals: LDL <100 optimal. 100 - 129 Near optimal. 130 - 159 Borderline High. 160 - 189 High. Total Cholesterol <200 desirable. 200 - 239 Borderline High. >/= 240 High. HDL < 40 Low >/=60 High. Triglycerides <150 desirable. <199 optimal. VlDL 5 - 40. HgbA1C <7%. BMI <25 Patient has diagnosis of Hyperlipidemia (ICD E78)?: Yes - Visit Date of Assessment:: 08/05/22 Session #:: 11 - Cholesterol/Lipids (Other Core Measures) Triglycerides (mg/dL): 34 Total Cholesterol (mg/dL): 109 LDL Cholesterol (mg/dL): 53 HDL Cholesterol (mg/dL): 49 Determine presence & major risk factors that modify LDL goal: Hypertension or hypertensive medication, Family history of premature CHD in Male < 55 years: female <65 yearsFa, Age men > 45 years; women >/= 55 years Outcomes/Goals: Pt IDs own risk factors & lifestyle modifications by Session 10, Verbalizes symptoms of angina & response by session 3., Pt independently manages Intervention/Plan: Instruct on personal lipid levels & lipid goals/NCEP guidelines, Instruct on cholesterol Referral to dietitian:: Yes 30-day Reassessments:: Met - Diabetes (Other Core Measures) Diabetes Type: Not Applicable - Weight Mgt (Other Care) Not Applicable: Yes Height: 6 ft Weight:: 176 lb BMI: 23.8 Diagnosis Overweight/Obesity BMI> 30% ICD-10 E66: No Diagnosis High BMI/Morbid Obesity BMI> 35% ICD-10 Z68: No Outcomes/Goals: Pt sets, maintains & shows weight loss goal & trend during rehab Intervention/Plan: Instruct on ideal BMI & set weight loss goal w/patient 30 day Reassessments:: Met - Healthy Eating Habits Will attend diet classes:: Yes Outcomes/Goals:: Consume diet rich in vegs,fruits,whole grain/high fiber,fish,lean meat, Limit sat/trans fats,cholesterol & added salts & sugars Intervention/Plan:: Assess current eating habits 30-day Reassessments:: Met - Education Gave educational materials for:: Healthy eating Nutrition - 60-Day Assessment Nutrition - 90-Day Assessment Nutrition - Final Assessment Core - Initial Assessment Core - 30-Day Assessment - Visit Date of Eval: 08/05/22 Session #:: 11 - Medication Compliance Preventative Medication(s):: Aspirin, Clopidogrel/P2Y12 inhibit, Statin/lipid, Beta yoon H/O mental health issues: depression, anxiety, or addiction?: No Doesn?t believe in the benefits of treatment?: No Believes medications are unnecessary or harmful?: No Has a concern about medication side effects?: No Expresses concern over the cost of medications?: No Outcomes/Goals: Verbalizes medications,desired effect & common side effects @ DC, Pt self-reports following medication regimen, Keeps card in wallet w/medications listed by DC Interventions/plans: Instruct on medication effects & side effects, Review medication list w/patient every two weeks, Instruct importance of taking meds as ordered & assist problem solving 30-day Reassessments:: Met - Tobacco Use Tobacco Use: Non-smoker - Hypertension Hypertension Diagnosis:: Hypertension ICD-10 I10 Resting Blood Pressure:: 128/68 - BPS under 130/80 [place] [employer] Hypertension Guidelines: [place] [employer] Hypertension Guidelines. Normal BP Less than 120/80. Elevated BP 120/80. Hypertension Stage 1: BP 130-139/80-89. Hypertesnion Stage 2: BP 140 or higher/90 or higher. Hypertension Crisis: BP higher than 180/120 Peak Exercise Blood Pressure:: 172/80 Outcomes/Goals: Able to verbalize/achieve optimal blood pressure <130/80, Incorporates diet changes & exercise for blood pressure control by DC Interventions/plan: Instruct on optimal blood pressure, hypertension & medications, Instruct on effects of sodium, alcohol, stress, exercise &hypertension 30 day Reassessments:: Met - Tobacco Cessation Referral Smoking Cessation Referral:: No Individual Education/Counseling:: No Education Schedule Given:: Yes Core - 60-Day Assessment Core - 90 Day Assessment Core - Final Assessment Psychosocial - Initial Assess Psychosocial - 30-Day Assess - VIsit Date of Eval: 08/05/22 Session #:: 11 Not Applicable: Yes History of previous Mental disease:: No - Psychosocial Test Tool Used:: PHQ-9 Questionnaire phq-9 Severity: Severity. 1-4 Minimal Depression. 5-9 Mild Depression. 10-14 Moderate Depression. 15-19 Moderately Sever Depression. 20-27 Severe Depression. Rule: - Referral to Behavioral Health PS - Interventions: Yes Attend Stress Management Classes, No Referral to Behavioral Health if PHQ-9 score >9:, No Referral to [facility], No Referral to Physician if PHQ-9 if score is 5-9: - Outcomes/Goals: See list Psychosocial Outcomes/Goals:: ID's personal stressors & 2 strategies to manage stress by discharge - Intervention/Plan: See List Interventions/Plan:: Assess stressors,coping strategies & signs of derpression on admission, Instruct/assist pt to develop coping & personal stress Mgt strategies, Instruct patient to recognize signs & symptoms of depression, Instruct patient to recog - 30-day Reassessments: 30 day Reassessments:: Met Psychosocial - 60-Day Assess Psychosocial - 90-Day Assess Psychosocial - Final Assessmen Patient Health Questionnaire 30-Day Re-eval Assessment 1. Little interest or pleasure in doing things: Not at all 2. Feeling down, depressed, or hopeless: Not at all 3. Trouble falling or staying asleep, or sleeping too much: Several days 4. Feeling tired or having little energy: Not at all 5. Poor appetite or overeating: Not at all 6. Feeling bad about yourself -- or that you are a failure or have let yourself or your family down: Not at all 7. Trouble concentrating on things, such as reading the newspaper or watching television: Not at all 8. Moving or speaking so slowly that other people could have noticed. Or the opposite - being so fidgety or restless that you have been moving around a lot more than usual: Not at all 9. Thoughts that you would be better off , or of hurting yourself in some way: Not at all How difficult have these problems made it for you to do your work, take care of things at home, or get along with other people?: Not difficult at all Total Score: 1 Self-Efficacy 30-Day Re-eval Assessment We would like to know how confident you are in doing certain activities. Please select your confidence level for:: Select your confidence level for the following using the scale 1-10 where 1 is not at all confident and 10 is totally confident. Your score is the average of all 6 responses. Fatigue: How confident are you that you can keep the fatigue caused by your disease from interfering with the things you want to do? Select Number: 10 Physical Discomfort or Pain: How confident are you that you can keep the physical discomfort or pain of your disease from interfering with the things you want to do? Select Number: 10 Emotional Distress: How confident are you that you can keep the emotional distress caused by your disease from interfering with the things you want to do? Select Number: 10 Other Symptoms or Health Problems: How confident are you that you can keep other symptoms or health problems from interfering with the things you want to do? Select Number: 10 Different Tasks and Activities: How confident are you that you can do the different tasks and activities needed to manage your health condition so as to reduce your need to see a doctor? Select Number: 9 Medication: How confident are you that you can do things other than just taking medication to reduce how much your illness affects your everyday life? Select Number: 10 Total Score:: 9 Nutrition Survey
[2022-08-05 08:41] VITALS: BP 128/68; BP 172/80; BMI 23.8
== END 2022-08-30 23:59 ==
LOC: CR 14:30
PROVIDERS: PCP Family Medicine; Referring Provider Internal Medicine Cardiovascular Disease; Visit Provider Internal Medicine Cardiovascular Disease
DX: I21.4 Non-ST elevation (NSTEMI) myocardial infarction (principal); Z95.5 Presence of coronary angioplasty implant and graft
CPT/HCPCS: 93798

== ENCOUNTER 2022-09-27 14:30 | Outpatient (RCR) | payer MEDICARE, OTHER, SELFPAY ==
[2022-08-05 08:41] VITALS: BMI 23.8
[2022-08-31 01:56] VITALS: BP 128/68; BP 172/80
--- NOTE | 2022-09-04 08:43 | CR.ITP_ITS ---
Diagnosis Exercise - 60-day Assessment - Visit Date of Eval: 09/04/22 Session #:: 23 - Physician Prescribed Exercise Modalities: Treadmill, Airdyne, NuStep Frequency: 3x/week for 12 weeks [36 sessions] Intensity: 60-80% of age predicted maximum heart rate reserve Duration: 30 - 45 minutes Current METSs:: 7.0 Target Heart Rate:: 112-126 Current RPE:: 12-14 Maximum Excercise HR:: 126 Resting Blood Pressure: 98/54 Maximum Exercise Blood Pressure: 168/80 EKG Type: NSR to sinus tach without ectopy. Current Physical Activity or Exercising minutes: 37 - Outcomes & Goals Goals:: Verbalizes understanding of THR, RPE & goal METS by session 6, Documents in home exercise log/reports 30 min aerobic 5 day/wk by DC, Demonstrates accurate pulse taking by DC - Intervention & Plan Exercise Program Goals: Instruct on personal THR & RPE, Instruct on MET level & personal MET goal, Show patient to take own pulse /validate performance until accurate, Instruct on home exercise - 30-day Reassessments 30 day Reassessments:: Met - Physical Activity Home Exercise Physical Activity - Home Exercise: Safe Exercise, Warm-up, Self-monitoring, Cool-Down, Home Exercise > 30 min Daily, Sitting Time <3 hours/daily - Outcomes & Goals Outcomes/Goals: Demonstrates correct Warm-up/exercise Cool-Down (S3) if = 2.5 METs, Verbalizes symptoms of exercise intolerance by Session 3 (S3), Demonstrate safe equipment use (S3) & follows exercise prescrition (6) - Intervention & Plan Plan/Intervention: Instruct warm-up & cool-down if exercising at > 2 METs, Instruct on symptoms of exercise intolerance & actions to take, Instruct & monitor on saf, Assess intial functional capacity & safety risk - 30-day Reassessments 30 day Reassessments:: Met Nutrition - Initial Assessment Nutrition - 30-Day Assessment Nutrition - 60-Day Assessment - Program Goals Nutrition Program Goals: LDL <100 optimal. 100 - 129 Near optimal. 130 - 159 Borderline High. 160 - 189 High. Total Cholesterol <200 desirable. 200 - 239 Borderline High. >/= 240 High. HDL < 40 Low >/=60 High. Triglycerides <150 desirable. <199 optimal. VlDL 5 - 40. HgbA1C <7%. BMI <25 Patient has diagnosis of Hyperlipidemia (ICD E78)?: Yes - Visit Date of Assessment:: 09/04/22 Session #:: 24 - Cholesterol/Lipids (Other Core Measures) Triglycerides (mg/dL): 34 Total Cholesterol (mg/dL): 109 LDL Cholesterol (mg/dL): 53 HDL Cholesterol (mg/dL): 49 Determine presence & major risk factors that modify LDL goal: Hypertension or hypertensive medication, Family history of premature CHD in Male < 55 years: female <65 yearsFa, Age men > 45 years; women >/= 55 years Outcomes/Goals: Pt IDs own risk factors & lifestyle modifications by Session 10, Verbalizes symptoms of angina & response by session 3., Pt independently manages Intervention/Plan: Instruct on personal lipid levels & lipid goals/NCEP guidelines, Instruct on cholesterol Referral to dietitian:: No - After speaking with the patient, they declined. 30-day Reassessments:: Progressing - Diabetes (Other Core Measures) Diabetes Type: Not Applicable - Weight Mgt (Other Care) Not Applicable: Yes Height: 6 ft Weight:: 179 lb BMI: 24.3 Diagnosis Overweight/Obesity BMI> 30% ICD-10 E66: No Diagnosis High BMI/Morbid Obesity BMI> 35% ICD-10 Z68: No Outcomes/Goals: Pt sets, maintains & shows weight loss goal & trend during rehab Intervention/Plan: Instruct on ideal BMI & set weight loss goal w/patient 30 day Reassessments:: Met - Healthy Eating Habits Will attend diet classes:: Yes Outcomes/Goals:: Consume diet rich in vegs,fruits,whole grain/high fiber,fish,lean meat, Limit sat/trans fats,cholesterol & added salts & sugars Intervention/Plan:: Assess current eating habits 30-day Reassessments:: Met - Education Gave educational materials for:: Healthy eating Nutrition - 90-Day Assessment Nutrition - Final Assessment Core - Initial Assessment Core - 30-Day Assessment Core - 60-Day Assessment - Visit Date of Eval: 09/04/22 Session #:: 24 - Medication Compliance Preventative Medication(s):: Aspirin, Clopidogrel/P2Y12 inhibit, Statin/lipid, Beta yoon H/O mental health issues: depression, anxiety, or addiction?: No Doesn?t believe in the benefits of treatment?: No Believes medications are unnecessary or harmful?: No Has a concern about medication side effects?: No Expresses concern over the cost of medications?: No Outcomes/Goals: Verbalizes medications,desired effect & common side effects @ DC, Pt self-reports following medication regimen, Keeps card in wallet w/medications listed by DC Interventions/plans: Instruct on medication effects & side effects, Review medication list w/patient every two weeks, Instruct importance of taking meds as ordered & assist problem solving 30-day Reassessments:: Met - Tobacco Use Tobacco Use: Non-smoker - Hypertension Hypertension Diagnosis:: Hypertension ICD-10 I10 Resting Blood Pressure:: 98/54 Citizen [place] [employer] Hypertension Guidelines: Citizen [place] [employer] Hypertension Guidelines. Normal BP Less than 120/80. Elevated BP 120/80. Hypertension Stage 1: BP 130-139/80-89. Hypertesnion Stage 2: BP 140 or higher/90 or higher. Hypertension Crisis: BP higher than 180/120 Peak Exercise Blood Pressure:: 168/80 Outcomes/Goals: Able to verbalize/achieve optimal blood pressure <130/80, Incorporates diet changes & exercise for blood pressure control by DC Interventions/plan: Instruct on optimal blood pressure, hypertension & medications, Instruct on effects of sodium, alcohol, stress, exercise &hypertension 30 day Reassessments:: Met - Tobacco Cessation Referral Smoking Cessation Referral:: No Individual Education/Counseling:: No Education Schedule Given:: Yes Core - 90 Day Assessment Core - Final Assessment Psychosocial - Initial Assess Psychosocial - 30-Day Assess Psychosocial - 60-Day Assess - VIsit Date of Eval: 09/04/22 Session #:: 24 Not Applicable: Yes History of previous Mental disease:: No - Psychosocial Test Tool Used:: PHQ-9 Questionnaire phq-9 Severity: Severity. 1-4 Minimal Depression. 5-9 Mild Depression. 10-14 Moderate Depression. 15-19 Moderately Sever Depression. 20-27 Severe Depression. Rule: - Referral to Behavioral Health PS - Interventions: Yes Attend Stress Management Classes, No Referral to Behavioral Health if PHQ-9 score >9:, No Referral to [facility], No Referral to Physician if PHQ-9 if score is 5-9: - Outcomes/Goals: See list Psychosocial Outcomes/Goals:: ID's personal stressors & 2 strategies to manage stress by discharge - Intervention/Plan: See List Interventions/Plan:: Assess stressors,coping strategies & signs of derpression on admission, Instruct/assist pt to develop coping & personal stress Mgt strategies, Instruct patient to recognize signs & symptoms of depression, Instruct patient to recog - 30-day Reassessments: 30 day Reassessments:: Met Psychosocial - 90-Day Assess Psychosocial - Final Assessmen Patient Health Questionnaire 60-Day Re-eval Assessment 1. Little interest or pleasure in doing things: Not at all 2. Feeling down, depressed, or hopeless: Not at all 3. Trouble falling or staying asleep, or sleeping too much: Not at all 4. Feeling tired or having little energy: Not at all 5. Poor appetite or overeating: Not at all 6. Feeling bad about yourself -- or that you are a failure or have let yourself or your family down: Not at all 7. Trouble concentrating on things, such as reading the newspaper or watching television: Not at all 8. Moving or speaking so slowly that other people could have noticed. Or the opposite - being so fidgety or restless that you have been moving around a lot more than usual: Not at all 9. Thoughts that you would be better off , or of hurting yourself in some way: Not at all Total Score: 0 Self-Efficacy 60-Day Re-eval Assessment We would like to know how confident you are in doing certain activities. Please select your confidence level for:: Select your confidence level for the following using the scale 1-10 where 1 is not at all confident and 10 is totally confident. Your score is the average of all 6 responses. Fatigue: How confident are you that you can keep the fatigue caused by your disease from interfering with the things you want to do? Select Number: 10 Physical Discomfort or Pain: How confident are you that you can keep the physical discomfort or pain of your disease from interfering with the things you want to do? Select Number: 10 Emotional Distress: How confident are you that you can keep the emotional distress caused by your disease from interfering with the things you want to do? Select Number: 10 Other Symptoms or Health Problems: How confident are you that you can keep other symptoms or health problems from interfering with the things you want to do? Select Number: 10 Different Tasks and Activities: How confident are you that you can do the different tasks and activities needed to manage your health condition so as to reduce your need to see a doctor? Select Number: 10 Medication: How confident are you that you can do things other than just taking medication to reduce how much your illness affects your everyday life? Select Number: 10 Total Score:: 10 Nutrition Survey
[2022-09-04 08:50] VITALS: BP 168/80; BP 98/54; BMI 24.3
== END 2022-09-29 23:59 ==
LOC: CR 14:30
PROVIDERS: PCP Family Medicine; Referring Provider Internal Medicine Cardiovascular Disease; Visit Provider Internal Medicine Cardiovascular Disease
DX: I21.4 Non-ST elevation (NSTEMI) myocardial infarction (principal); Z95.5 Presence of coronary angioplasty implant and graft
CPT/HCPCS: 93798

== ENCOUNTER 2022-10-02 14:30 | Outpatient (RCR) | payer MEDICARE, OTHER, SELFPAY ==
[2022-09-04 08:50] VITALS: BMI 24.3
[2022-09-30 00:37] VITALS: BP 168/80; BP 98/54
== END 2022-10-30 23:59 ==
LOC: CR 14:30
PROVIDERS: PCP Family Medicine; Referring Provider Internal Medicine Cardiovascular Disease; Visit Provider Internal Medicine Cardiovascular Disease
DX: I21.4 Non-ST elevation (NSTEMI) myocardial infarction (principal); Z95.5 Presence of coronary angioplasty implant and graft
CPT/HCPCS: 93798

== ENCOUNTER → 2023-09-18 | Outpatient (CLI) | payer MEDICARE, OTHER, SELFPAY ==
[2022-09-04 08:50] VITALS: BMI 24.3
[2023-09-18 12:26] LABS: Absolute Lymphocyte Count 1.33 X10^3/uL (0.83-4.51); Absolute Neutrophil Count 4.9 X10^3/uL (2.0-7.7); Basophil# 0.02 X10^3/uL; Basophil% 0.3 % (0-1); Eosinophil# 0.18 X10^3/uL; Eosinophils% 2.6 % (0-5); Hematocrit 38.9 % (40-54); Hemoglobin 12.4 g/dL (13.0-16.5); Lymphocyte # 1.33 X10^3/ul (0.83-4.51); Lymphocyte % 19.2 % (19-41); Mean Corp Hgb Conc 31.9 g/dL (32-36); Mean Corpuscular Hgb 29.8 pg (27.0-32.0); Mean Corpuscular Volume 93.5 fL (80-94); Mean Platelet Vol. 11.6 fl (6.2-12.0); Monocyte# 0.49 X10^3/uL; Monocyte% 7.1 % (0-10); NRBC Flagged by Analyzer 0 % (0-5); Neutrophil # 4.89 X10^3/uL (2.7-7.7); Neutrophil % 70.7 % (47-70); Platelet Count 203 K/mm3 (150-450); RBC Distribution Width CV 13.3 % (11.6-14.6); RBC Distribution Width SD 45.8 fl (35.1-43.9); Red Blood Count 4.16 M/mm3 (4.6-6.2); White Blood Count 6.9 K/mm3 (4.4-11.0)
[2023-09-18 13:03] LABS: ALB/GLOB Ratio 1.1 RATIO (0.9-2.4); AST(SGOT) 26 U/L (15-37); Alanine Aminotransfer ALT/SGPT 27 U/L (16-61); Albumin, Serum 3.6 g/dL (3.2-5.0); Alkaline Phosphatase 94 U/L (45-117); Anion Gap 7 (5-15); BUN 20 mg/dL (7-18); BUN/Creat Ratio 21.5 RATIO (10-20); Calcium,Total 8.7 mg/dL (8.5-10.1); Chloride 111 mmol/L (98-107); Cholesterol 93 mg/dL (200); Creatinine, Serum 0.93 mg/dL (0.70-1.30); EST Glomerular Filtration Rate 84 mL/min (>60); Est Glom Filt Rate - Afr Amer 102 mL/min (>60); Globulin 3.4 g/dL (2.2-4.2); Glucose 86 mg/dL (74-106); High Density Lipoprotein 34 mg/dL; PSA,Total - Annual Screen 4.44 ng/mL (0.00-4.00); Potassium 4.1 mmol/L (3.5-5.1); Sodium Level 140 mmol/L (136-145); Triglycerides 84 mg/dL; Very Low Density Lipoprotein 17 mg/dL (5-40)
== END | disposition home or self-care (01) ==
LOC: BFHLAB 08:52
PROVIDERS: PCP Family Medicine; Referring Provider Family Medicine; Visit Provider Family Medicine
DX: I25.10 Atherosclerotic heart disease of native coronary artery without angina pectoris (principal); E78.5 Hyperlipidemia, unspecified; Z12.5 Encounter for screening for malignant neoplasm of prostate
CPT/HCPCS: 36415; 80053; 80061; 84153; 85025; G0103

== ENCOUNTER → 2024-08-19 | Outpatient (CLI) | payer MEDICARE, OTHER, SELFPAY ==
[2022-09-04 08:50] VITALS: BMI 24.3
[2024-08-19 12:15] LABS: Absolute Lymphocyte Count 1.61 X10^3/uL (0.83-4.51); Absolute Neutrophil Count 4.2 X10^3/uL (2.0-7.7); Basophil# 0.04 X10^3/uL; Basophil% 0.6 % (0-1); Eosinophil# 0.15 X10^3/uL; Eosinophils% 2.3 % (0-5); Hematocrit 38.4 % (40-54); Hemoglobin 12.8 g/dL (13.0-16.5); Lymphocyte # 1.61 X10^3/ul (0.83-4.51); Lymphocyte % 24.6 % (19-41); Mean Corp Hgb Conc 33.3 g/dL (32-36); Mean Corpuscular Hgb 31.1 pg (27.0-32.0); Mean Corpuscular Volume 93.4 fL (80-94); Mean Platelet Vol. 11.7 fl (6.2-12.0); Monocyte# 0.49 X10^3/uL; Monocyte% 7.5 % (0-10); NRBC Flagged by Analyzer 0 % (0-5); Neutrophil # 4.24 X10^3/uL (2.7-7.7); Neutrophil % 64.8 % (47-70); Platelet Count 240 K/mm3 (150-450); RBC Distribution Width CV 13.8 % (11.6-14.6); RBC Distribution Width SD 47.4 fl (35.1-43.9); Red Blood Count 4.11 M/mm3 (4.6-6.2); White Blood Count 6.5 K/mm3 (4.4-11.0)
[2024-08-19 12:38] LABS: ALB/GLOB Ratio 1.6 RATIO (0.9-2.4); AST(SGOT) 25 U/L (<=37); Alanine Aminotransfer ALT/SGPT 16 U/L (<=46); Albumin, Serum 4.1 g/dL (3.4-4.8); Alkaline Phosphatase 89 U/L (40-129); Anion Gap 12 (5-15); BUN 16 mg/dL (4-19); BUN/Creat Ratio 14.8 RATIO (10-20); Calcium,Total 8.9 mg/dL (7.6-11.0); Carbon Dioxide 21.5 mmol/L (21.0-32.0); Chloride 106 mmol/L (98-108); Cholesterol 112 mg/dL (<=200); Creatinine, Serum 1.09 mg/dL (0.70-1.20); EST Glomerular Filtration Rate 71 (>60); Globulin 2.5 g/dL (2.2-4.2); Glucose 85 mg/dL (70-99); High Density Lipoprotein 41 mg/dL; Low Density Lipoprotein Calc. 55 mg/dL; Potassium 4.4 mmol/L (3.3-5.1); Protein, Total 6.6 g/dL (5.9-8.4); Sodium Level 139 mmol/L (133-145); Total Bilirubin 0.63 mg/dL (0.00-1.30); Triglycerides 84 mg/dL; Very Low Density Lipoprotein 17 mg/dL (5-40); cholesterol:hdl ratio screen 2.75
== END | disposition home or self-care (01) ==
PROVIDERS: PCP Family Medicine; Referring Provider Family Medicine; Visit Provider Family Medicine
DX: I25.10 Atherosclerotic heart disease of native coronary artery without angina pectoris (principal); E78.5 Hyperlipidemia, unspecified; R97.20 Elevated prostate specific antigen [PSA]
CPT/HCPCS: 36415; 80053; 80061; 84153; 85025

== ENCOUNTER → 2025-02-18 | Outpatient (CLI) | payer MEDICARE, OTHER, SELFPAY ==
[2022-09-04 08:50] VITALS: BMI 24.3
[2025-02-21 13:08] LABS: PSA, Free 0.84 ng/mL; PSA, Free % 15.8 % (.); PSA, Total Ultrasensitive 5.330 ng/mL (0.000-4.000)
== END | disposition home or self-care (01) ==
LOC: BFHLAB 13:22
PROVIDERS: PCP Family Medicine; Visit Provider Family Medicine
DX: R97.20 Elevated prostate specific antigen [PSA] (principal)
CPT/HCPCS: 36415; 84153; 84154